=== PATIENT | male | born 1945 | race Caucasian/White ===

== ENCOUNTER 2024-06-29 09:48 | Outpatient (CLI) | payer MEDICARE, SELFPAY ==
--- NOTE | ~2024-06-29 | XR_ITS ---
Clinical Indication: Cough PA and lateral views of the chest: Comparison: None Findings: The lungs are clear, without evidence of focal consolidation or pleural effusion. Cardiome diastinal silhouette is within normal limits. Bones and soft tissues are unremarkable. Impression: Normal chest. Reviewed, dictated and finalized at location . Impression: Normal chest.
== END 2024-06-29 09:49 | disposition home or self-care (01) ==
PROVIDERS: PCP Nurse Practitioner Family; Visit Provider Nurse Practitioner Family
DX: R05.9 Cough, unspecified (principal)
CPT/HCPCS: 71046

== ENCOUNTER 2024-08-02 08:16 | Outpatient (CLI) | payer MEDICARE, SELFPAY ==
[2024-08-02 18:52] LABS: Hematocrit 46.1 % (42.0-52.0); Hemoglobin 14.4 g/dL (14.0-18.0); Mean Corpuscular HGB Conc 31.2 g/dl (32-36); Mean Corpuscular Hemoglobin 30.6 pg (26-34); Mean Corpuscular Volume 97.9 fl (80-100); Mean Platelet Volume 9.9 fl (7.4-10.4); Platelet Count Result 350 k/mm3 (150-375); Red Blood Count 4.71 M/mm3 (4.6-6.20); Red Cell Distribution Width 13.8 % (11.5-14.5); White Blood Count 8.4 K/mm3 (4.5-10.0)
[2024-08-02 19:47] LABS: Hepatitis B Surface Antigen Negative (Negative)
[2024-08-02 19:53] LABS: HAV RESULT Negative (Negative); Hepatitis B Core IgM Result Negative (Negative)
[2024-08-02 19:59] LABS: Alanine Aminotransferase 24 U/L (6-50); Albumin Level 4.2 g/dL (3.5-5.1); Alkaline Phosphatase 95 U/L (38-126); Anion Gap 5 mmol/L (4-12); Aspartate Amino Transferase 58 U/L (17-59); Bilirubin,Total 0.4 mg/dL (0.2-1.3); Blood Urea Nitrogen 22 mg/dL (9-20); Calcium 9.1 mg/dL (8.4-10.2); Carbon Dioxide 31 mmol/L (22-30); Chloride 101 mmol/L (98-107); Cholesterol 170 mg/dL (0-200); Estimated Glomerular Filt Rate 59; Glucose 90 mg/dL (65-110); HDL Direct 55 mg/dL; Potassium 4.6 mmol/L (3.4-5.0); Sodium 137 mmol/L (137-145); Triglycerides 68 mg/dL (<150)
[2024-08-02 20:05] LABS: Hepatitis C Virus Antibody Negative (Negative)
[2024-08-02 20:11] LABS: LDL Cholesterol Direct 80 mg/dL
== END 2024-08-02 08:17 | disposition home or self-care (01) ==
PROVIDERS: PCP Nurse Practitioner Family; Visit Provider Family Medicine
DX: D64.9 Anemia, unspecified (principal); K21.9 Gastro-esophageal reflux disease without esophagitis; R13.10 Dysphagia, unspecified; R74.8 Abnormal levels of other serum enzymes; Z00.00 Encounter for general adult medical examination without abnormal findings; R11.0 Nausea; Z12.5 Encounter for screening for malignant neoplasm of prostate; E66.9 Obesity, unspecified; E78.5 Hyperlipidemia, unspecified
CPT/HCPCS: 36415; 80053; 80061; 80074; 84153; 84443; 85027; G0103

== ENCOUNTER 2024-11-20 11:14 | Outpatient (CLI) | payer MEDICARE, SELFPAY ==
[2024-11-20 12:34] LABS: Hematocrit 44.6 % (42.0-52.0); Hemoglobin 14.3 g/dL (14.0-18.0); Mean Corpuscular HGB Conc 32.1 g/dl (32-36); Mean Corpuscular Hemoglobin 30.9 pg (26-34); Mean Corpuscular Volume 96.3 fl (80-100); Mean Platelet Volume 9.7 fl (7.4-10.4); Platelet Count Result 258 k/mm3 (150-375); Red Blood Count 4.63 M/mm3 (4.6-6.20); Red Cell Distribution Width 13.4 % (11.5-14.5); White Blood Count 10.2 K/mm3 (4.5-10.0)
--- OUTSIDE RECORDS SUMMARY | 2024-11-20 12:39 | XMS_ITS | Continuity of Care Document ---
Author Organization [facility] Address [address] [place] [address] Phone Care Team Providers Care Delinquent Tax Collector Name Role Phone Aris Nobles MD Unavailable Unavailable Procedures Procedure Date Eye Exam & Treatment Office/outpatient Visit, Est Office/outpatient Visit, Est Advance Directives Directive Yes / No Effective Date File Name No Information Encounters Encounter Description Practice Location Reason(s) For Visit Diagnoses Date Provider Providers Copied on Encounter [facility], [address] [place] [address] [address], [place], [place], [id number], [place] tel:[phone] SEC Zack RODRIGES Professional No Information [address] [facility] [place], [address], [place]. tel:[phone] [place]pat [place] [facility] [address] [place] [address] [address], [place], [place], [id number], [place] tel:[phone] SEC Zack RODRIGES Professional No Information [address] [facility], [place], [place], [address], [place]. tel:[phone] Office/[place]pat [place] [facility] [place] [address] [place] [address] [address], [place], [place], [id number], [place] tel:[phone] SEC Zack ANTELMO Professional No Information 0-[address], [place], [place], [address], [place]. tel:[phone] Family History Family Member Type Diagnosis Age At Onset No Information Payers Payer name Insurance type Covered republican ID Authoriza tion(s) No Information Social History Type Description Quantity Date Captured Comments Sex Male Smoking Status No Information Chief Complaint And Reason For Visit No Information Reason For Referral Reason For Referral No Information History Of Present Illness Encounter Date Complaint History Of Prese nt Illness No Information Functional Status Date Functional Assessmen t No Information Instructions Date Instruction Additional Infor mation No Information Assessments Type Assessment Date No Information Patient Care Teams Name Effective Dates (start - stop) Status Members No Information
--- OUTSIDE RECORDS SUMMARY | 2024-11-20 12:39 | XMS_ITS | Encounter Summary ---
Author Organization [facility] Address [address] [facility] [place] [address] Care Team Providers Care Subgrade Tester Name Role Phone Camacho Jacobsen MD Primary Care Provider [phone] Encounter Details Date Type Department Care Team (Late st Contact Info) Description 02/21/2019 Lab Requisition [facility] Care D[facility] Lab [address] [facility] [place] [id number] [place] [address] Social History Tobacco Use Types Packs/Day Years Used Date Smoking Tobacco: Never Smokeless Tobacco: Never Alcohol Use Standard Drinks/Week Comments Yes 0 (1 standard drink = 0.6 oz pur e alcohol) Sex and Gender Information Value Date Recorded Sex Assigned at Not on file Gender Identity Not on file Sexual Orientation Not on file documented as of this encounter Plan of Treatment Not on file documented as of this encounter Procedures Procedure Name Priority Date/Time Associated Diagnosis Comments DERMATOPATHOLOGY Routine 02/20/2019 12:0 0 AM CDT documented in this encounter Results * DERMATOPATHOLOGY (02/20/2019 12:00 AM CDT) Case Report Dermatopathology Report Case: [id number] Authorizing Provider: Isaac Sims MD Collected: 02/20/2019 12:00 AM Pathologist: Estrada Vaca MD Received: 02/21/2019 12:25 PM Specimen: Skin, base of left neck 4:20 PM CDT DERMATOPATHOLOGY LABORATORY Final Diagnosis Specimen A. 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 4:20 PM CDT DERMATOPATHOLOGY LABORATORY Gross Description Specimen A: Received is one formalin filled container labeled with the patient's name and designated base of left neck. The specimen consists of a shave biopsy measuring [id number]. Jar 0. 4:20 PM CDT DERMATOPATHOLOGY LABORATORY Microscopic Description Specimen A. SKIN, base of left neck: The epidermis shows parakeratosis, full thickness disorderly maturation of keratinocytes, mitoses at different levels, and dyskeratotic cells. 4:20 PM CDT DERMATOPATHOLOGY LABORATORY Disclaimer An external and internal positive and negative controls are appropriate for the histochemical, immunohistochemical and immunofluorescence stain(s) in this case (if any), except where stated explicitly. The performance characteristics of the stain(s) cited in this report were developed and its performance characteristic determined by the Dermatopathology Laboratory at [facility], directed by Dr. Carol Vaca. These tests need not be, and therefore are not, approved by the [place] Food and Drug Administration. The tests are used for clinical purposes. Billing Codes Specimen Charges Stain Charges 04685 1 4:20 PM CDT DERMATOPATHOLOGY LABORATORY Embedded Images 4:20 PM CDT DERMATOPATHOLOGY LABORATORY Pathology/Cytolog y TISSUE SPECIMEN FROM SKIN / Unknown 02/20/2019 02/21/2019 12:25 PM CDT Isaac Sims MD LAB - PATHOLOGY/CYTO LOGY ORDERABLES DERMATOPATHOLOGY LABORATORY [facility] - Department of Dermatology [address] [place] [address], 5th Floor Lab [address] [phone] documented in this encounter Visit Diagnoses Not on filedocumented in this encounter Care Teams Subgrade Tester Relationship Specialty Start Date End Date Camacho Jacobsen MD PCP - General 10/12/13 documented as of this encounter
--- OUTSIDE RECORDS SUMMARY | 2024-11-20 12:39 | XMS_ITS | Encounter Summary ---
Author Organization [facility] Address [address] [place] [address] Care Team Providers Care Supervisor Finishing Room Name Role Phone Camacho Jacobsen MD Primary Care Provider + Trell Rojas MD Primary Care Provider [phone] Reason for Visit * Auth/Cert (Routine) Specialty Diagnoses / Procedures Referred By Contcarmela t Referred To Contact Diagnoses Anemia, unspecified type Encounter for screening colonoscopy Anemia, unspecified type [D64.9] Encounter for screening colonoscopy [Z12.11] Procedures CT COLONOSCOPY FLX DX W/COLLJ SPEC WHEN PFRMD COLONOSCOPY Referral ID Status Reason Start Date Expiration Date Visits Re quested Visits Authorized [id number] 1 1 Encounter Details Date Type Department Care Team (Late st Contact Info) Description 01/23/2024 Hospital Encounter [facility] [address] [place] [address] Mickey Hutchison MD [address] [place] [address] Social History Tobacco Use Types Packs/Day Years Used Date Smoking Tobacco: Never Smokeless Tobacco: Never Alcohol Use Standard Drinks/Week Comments No 0 (1 standard drink = 0.6 oz pur e alcohol) Sex and Gender Information Value Date Recorded Sex Assigned at Not on file 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 Gender Identity Not on file Sexual Orientation Not on file documented as of this encounter Plan of Treatment Not on file documented as of this encounter Visit Diagnoses Diagnosis Anemia Unspecified anemia Encounter for screening colonoscopy documented in this encounter Admitting Diagnoses Diagnosis Anemia Unspecified anemia Encounter for screening colonoscopy documented in this encounter Care Teams Supervisor Finishing Room Relationship Specialty Start Date End Date Camacho Jacobsen MD [address] [place] [address] PCP - General 01/11/17 11/16/24 Trell Roajs MD [address] [place] [address] PCP - General Family Practice 11/17/24 documented as of this encounter
--- OUTSIDE RECORDS SUMMARY | 2024-11-20 12:39 | XMS_ITS | Continuity of Care Document ---
Author Organization [facility] Address [address] [place] [address] Phone Care Team Providers Care It Field Technician Name Role Phone Justo Gatica MD Unavailable Unavailable Allergies, Adverse Reactions, Alerts Substance Reaction Status Criticality No Known Allergies Active No Inform ation Medications Medication Instructions Dosage Effective Dates (start - stop) Status Comments meloxicam 15 mg tablet take 1 tablet by oral route every day as needed 15 MG - Active Vitamin D3 50 mcg (2,000 unit) tablet - Active biotin 5,000 mcg disintegrating tablet - Active rosuvastatin 10 mg tablet take 1 tablet by oral route every day 10 MG - Active diltiazem ER (XR/XT) 240 mg capsule,extended release 24 hr, controlled take 1 capsule by oral route every day 240 MG - Active Restasis 0.05 % eye drops in a dropperette instill 1 drop by ophthalmic route every 12 hours into affected eye(s) 1.00 drop - Active Procedures Procedure Date Intravitreal Inj-agent (sep Pr Bevcizumab Avastin Optos Fundus Photography No Charge Retinal OCT Est Patient E/M Low MDM Bevcizumab Avastin No Charge Retinal OCT Intravitreal Inj-agent (sep Pr Optos Fundus Photography Pachymetry Gonioscopy (separt Proc) Scan Computerized; Optic Nerve Est Patient E/M Moderate MDM Intravitreal Inj-agent (sep Pr Bevcizumab Avastin Scan Computerized; Retina Est Patient E/M Low MDM Scan Computerized; Retina New Patient E/M Moderate MDM Advance Directives Directive Yes / No Effective Date File Name No Information Encounters Encounter Description Practice Location Reason(s) For Visit Diagnoses Date Provider Providers Copied on Encounter [facility], [address] [place], [place], [id number], [place] tel:[phone] Vladimir Exudative age-related macular degeneration, bilateral, with active choroidal neovascularizat ion Dec-1 0- 3 Gavi Kemp. [address] [place], [address] , [place]. tel:[phone] Referring Provider: Justo Gatica, [address] [place], [address] . tel:[phone] Est Patient E/M Low [facility], [address] [place], [place], [id number], [place] tel:[phone] Vladimir Vision loss in the left eye (chief complaint) Exudative age-related macular degeneration, bilateral, with active choroidal neovascularizat ion Mar-0 - 3 Gavi Kemp. [address] [place], [address] , [place]. tel:[phone] Referring Provider: Justo Gatica, [address] [place], [address] . tel:[phone] [facility], [facility] [place], [place], [address], tel:[phone] [facility] Follow Up of AMD (chief complaint) Exudative age-rel mclr degn, bi, with actv chrdl neovas 3 Gavi Kemp. [address] [place], [place], [address] , . tel:[phone] Referring Provider: Justo Gatica, [address] [place], [address] . tel:[phone] Est Patient E/M [facility] [place], [facility] , [place], [place], [id number], [place] tel:[phone] [facility] Glaucoma Consult (chief complaint) Primary open-angle glaucoma, right eye, mild stageOcular hypertension of left eye 2 Bobby Murdock. [address], [place], [place], [address] , [place]. tel:[phone] Referring Provider: Mathieu Dorado, [address], [place], [address] . tel:[phone] [facility], [facility] [address] , [place], [place], [address], [place] tel:[phone] [facility] Exudative age-related macular degeneration, bilateral, with active choroidal neovascularizat ion 2 Gavi [address]. [address] [place], [address] , [place]. tel:[phone] Referring Provider: Justo Gatica, [facility], [place], [address] . tel:[phone] Est Patient E/M Low [facility], [facility] , [place], [place], [address], [place] tel:[phone] [place] Exudative age-rel mclr degn, bi, with actv chrdl neovas (chief complaint) Exudative age-rel mclr degn, bi, with actv chrdl neovas 2 Gavi Kemp. [address] [place], [address] , [place]. tel:[phone] Referring Provider: Justo Gatica, [address] [place], [address] . tel:[phone] New Patient E/M [facility] [place], [facility] [facility] [address], [place], [place], [address], [place] tel:[phone] [place] Retinal Consult (chief complaint) Exudative age-rel mclr toribio, bi, with actv chrdl neovas 2 Gavi [address]. [address] [place], [address] , [place]. tel:[phone] Referring Provider: Justo Gatica, [address] [place], [address] . tel:[phone] Family History Family Member Type Diagnosis Age At Onset Mother Problem Hypertension Sister Problem Macular degeneration Father Problem Hypertension Brother Problem Macular degeneration Payers Payer name Insurance type Covered democrat ID Marcellus villeda(s) [employer] Medicare CI [id number] Social History Type Description Quantity Date Captured Comments Alcohol Use Details Unknown Caffeine Use Details Unknown Tobacco Use Status No Information Smoking Status No Information Sex Male Chief Complaint And Reason For Visit No Information Reason For Referral Reason For Referral No Information History Of Present Illness Encounter Date Complaint History Of Prese nt Illness Vision loss in the left eye Ilda ent is presented for an evaluation of vision loss in the left eye. Pt was last seen 11/05/22. Pt last injection AV OU 11/05/22. Pt reports after injections vision had improved. Pt reports distorted vision and blurry spots OS. PT reports symptoms started last week. Pt reports really noticing symptoms 4 days ago. Pt is unsure if symptoms have worsened or not in the last 4 days. Pt reports symptoms are constant. Follow Up of AMD Patient is pres ented for a follow up of AMD. PT was last seen 10/06/22. Pt reports no change in vision since last appt. Pt reports blurry vision OD. PT reports symptoms are not improving/worsening. Pt last injection 09/24/22 AV OU. Glaucoma Consult The 76 year old male presents for evaluation of Glaucoma Consult in the right eye and left eye. The symptom is constant. Pt states when he saw Dr Gatica on 09/24, he was told to come see Dr Rosales because of his high pressures. Pt states he has had high pressures for the last 40 years. Pt denies any pressure pain. Pt is taking Restasis QAM OU for dry eye and AT's PRN. Exudative age-rel mc lr degn, bi, with actv chrdl neovas The 76 year old male presents for evaluation of Exudative age-rel mclr degn, bi, with actv chrdl neovas in the right eye and left eye. Pt was last seen back August. The symptom is constant. Pt states vision changes OU, onset about 1 week ago. Pt reports they need more light to see, primarily when reading. Pt states wavy vision OD started about 3 days ago. Pt reports dark spots on OU. Pt denies any pain or flashes. Occasional floater OS. Retinal Consult The 76 year old male presents for evaluation of Retinal Consult in the right eye and left eye. The symptom is constant. Pt states seeing Dr. Hollis at [facility]. DX DX Neovascular AMD w/Active CNV OU. See Outside Consult notes.Pt reports last seeing Dr. Hollis on 08.03.22. Had AV Injection 07/27/22 OD and 08/03/22. Pt reports after last vision did notice a slight improvement in vision. Pt has occasional floaters both eyes. No flashes.Pt notes when looking at door frame notices a left hand curve right eye. Does not notice with both eyes open.Hx of Retinal Tears OU, ERM OU, Phaco w/IOL OU, Ocular Hypertension OU Functional Status Date Functional Assessmen t No Information Instructions Date Instruction Additional Infor christopher schedule AV OU 12/17 then f/u 4 - 6 wks later w/Dr Gatica for de/oct/optos Related to Exudative age-related macular degeneration, bilateral, with active choroidal neovascularization Impression/Plan - Di scussed diagnosis in detail with patient. Pt concerned that vision was changing, so he came in sooner. Advised patient that he does still have minimal leakage in bth eyes, and we should keep on coarse with the injections. Discussed risks of progression with present condition. Based on findings recommend to continue with Intravitreal Injection Treatment in BOTH EYES with AVASTIN to help reduce the fluid and prevent a further reduction in vision. Discussed the risks and benefits of tx. All questions answered. Patient elects to proceed with recommendation. OCT and Optos show minimal leakage OU. Related to Exudative age-rel mclr degn, bi, with actv chrdl neovas Follow up - schedule AV OU 12/17/22 then f/u 4 - 6 wks later w/Dr Gatica for de/oct/optos Related to Exudative age-rel mclr degn, bi, with actv chrdl neovas AV OU today then f/u in 4 - 6 wks for de/oct/optos w/Dr Gatica Related to Exudative age-rel mclr degn, bi, with actv chrdl neovas Impression/Plan - Di scussed diagnosis in detail with patient. Discussed risks of progression with present condition. Based on findings recommend to continue with Intravitreal Injection Treatment in BOTH EYES with AVASTIN to help reduce the fluid and prevent a further reduction in vision. Discussed the risks and benefits of tx. All questions answered. Patient elects to proceed with recommendation. OCT and Optos show minimal leakage OU. Related to Exudative age-rel mclr degn, bi, with actv chrdl neovas Follow up - AV OU to day then f/u in 4 - 6 wks for de/oct/optos w/Dr Gatica Related to Exudative age-rel mclr degn, bi, with actv chrdl neovas Schedule SLT OS with Mathieu Rosales MD Related to Ocular hypertension of left eye Schedule SLT OD with Mathieu Rosales MD Related to Primary open-angle glaucoma, right eye, mild stage Impression/Plan - Di scussed diagnosis, explained and understood by patient. Discussed IOP/ONH/Glaucoma management and risks. OCT ordered, performed and reviewed. Discussed adding drops vs laser. Patient elects SLT. Recommend Trabeculoplasty (SLT) OD 1st to possibly lower IOP. Discussed RBA's of laser trabeculoplasty . RL=2 Related to Primary open-angle glaucoma, right eye, mild stage Impression/Plan - Di scussed adding drops vs laser. Patient elects SLT. Recommend Trabeculoplasty (SLT) OS to possibly lower IOP. Discussed RBA's of laser trabeculoplasty . RL=2 Related to Ocular hypertension of left eye Follow up - Schedule SLT OD with Mathieu Rosales MD Related to Primary open-angle glaucoma, right eye, mild stage Follow up - Schedule SLT OS with Mathieu Rosales MD Related to Ocular hypertension of left eye AV OU (first w/ swec ) today then f/u in 4 - 6 wks for de/oct/optos w/Dr Gatica Related to Exudative age-rel mclr degn, bi, with actv chrdl neovas Impression/Plan - Di scussed diagnosis in detail with patient. Discussed risks of progression with present condition. Based on findings recommend Intravitreal Injection Treatment in BOTH EYES with AVASTIN to help reduce the fluid and prevent a further reduction in vision. Discussed the risks and benefits of tx. All questions answered. Patient elects to proceed with recommendation. OCT OU shows slight increase in edema. Related to Exudative age-rel mclr degn, bi, with actv chrdl neovas Follow up - AV OU (first w/ swec) then f/u in 4 - 6 wks for de/oct/optos w/Dr Gatica Related to Exudative age-rel mclr degn, bi, with actv chrdl neovas f/u in 3 - 4 wks for de/oct/optos w/Dr. Gatica, schedule a Glaucoma consult Related to Exudative age-rel mclr degn, bi, with actv chrdl neovas Impression/Plan - Di scussed diagnosis in detail with patient. Exam OD shows RPE mottling w/ shallow PED, no active hemorrhage/exudates, Exam OS shows extensive drusen, no active hemorrhage/fluid, shallow PED. No treatment is required at this time based on exam and diagnostic tests. Recommend observation for now. Will reassess condition in 3 - 4 wks, consider TIFFANIE treatment. OCT OU shows minimal activity, ? active.Recommend a glaucoma consult due to elevated IOP OU. Related to Exudative age-rel mclr degn, bi, with actv chrdl neovas Follow up - f/u in 3 - 4 wks for de/oct/optos w/Dr. Gatica, schedule a Glaucoma consult Related to Exudative age-rel eliud morel, with actv kel neovas Assessments Type Assessment Date No Information Patient Care Teams Name Effective Dates (start - stop) Status Members No Information
--- OUTSIDE RECORDS SUMMARY | 2024-11-20 12:39 | XMS_ITS | Patient Health Summary ---
Author Organization [facility] Address [address] [facility] [place] [address] Care Team Providers Care Director Sales And Marketing Name Role Phone Camacho Jacobsen MD Primary Care Provider [phone] Note from [facility],non-owned Affiliates and Associated Physician Practices is amultiple site organization consisting of ambulatory clinics and hospital sitesin [place], [place], [place] and [place]. This disclosure is being madepursuant to the Care Everywhere program and may not contain all information available regarding this patient. Last updated 18.[facility] [employer] Allergies No known active allergies Medications * Be aware that medications may not be up to date on this document. Alwaysverify current medications with the patient. * Cholecalciferol (VITAMIN D) 2000 units capsule Take 2,000 Units by mouth once daily * Meloxicam 5 MG CAPS Take by mouth once daily * ferrous sulfate 325 (65 FE) MG tablet Take 1 (one) tablet by mouth once daily * dilTIAZem HCl Coated Beads (DILTIAZEM CD PO) Take 240 mg by mouth once daily * rosuvastatin (Crestor) 10 MG tablet Take 1 (one) Half Tablet by mouth once daily Active Problems Problem Noted Date Diagnosed Date Cardiomyopathy, dilated 01/19/2023 04/05/20 23 Hyperlipidemia 02/24/2022 04/05/2023 Hypertension 02/24/2022 04/05/2023 Left bundle branch block 02/24/2022 023 Encounter for health-related screening 04/05/2023 Dysphagia 02/19/2020 04/05/2023 Medication management 06/06/2017 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 Vitamin D deficiency 02/23/2014 Social History Tobacco Use Types Packs/Day Years Used Date Smoking Tobacco: Never Smokeless Tobacco: Never Alcohol Use Standard Drinks/Week Comments Yes 0 (1 standard drink = 0.6 oz pur e alcohol) Sex and Gender Information Value Date Recorded Sex Assigned at Not on file Gender Identity Not on file Sexual Orientation Not on file Last Filed Vital Signs Vital Sign Reading Time Taken Comments Blood Pressure 151/77 03/21/2023 7:30 AM CDT Pulse 65 03/21/2023 7:30 AM CDT Temperature - - Respiratory Rate - - Oxygen Saturation 98% 05/22/2019 11:59 AM CDT Inhaled Oxygen Concentration - - Weight 77.1 kg (170 lb) 01/25/2022 8:28 AM CDT Height 167.6 cm (5' 6 ) 01/25/2022 8:28 AM CDT Body Mass Index 27.44 01/25/2022 8:28 AM CDT Procedures * MS CHMSRG MOHS MG TQ H/N/H/F/G 1ST STAG 5 BLOC(Performed 03/21/2023) 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 * PROC MOHS SURG HEAD/NECK/HAND/FEET/CONSUELO(Performed 03/21/2023) 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 * MS CHMSRG MOHS MG TQ H/N/H/F/G EA ADDL STAG(Performed 03/21/2023) 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 * MS CHMSRG MOHS MG TQ H/N/H/F/G 1ST STAG 5 BLOC(Performed 03/21/2023) 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 * MS CHMSRG MOHS MG TQ H/N/H/F/G EA ADDL STAG(Performed 03/21/2023) 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 * DERMATOPATHOLOGY(Performed 01/20/2023) * MS CHMSRG MOHS MG TQ H/N/H/F/G EA ADDL STAG(Performed 01/25/2022) 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 * MS CHMSRG MOHS MG TQ H/N/H/F/G 1ST STAG 5 BLOC(Performed 01/25/2022) 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 * DERMATOPATHOLOGY(Performed 07/28/2020) * MS CHMSRG MOHS MG TQ H/N/H/F/G 1ST STAG 5 BLOC(Performed 05/22/2019) 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 * MS REPR CMPL WND HEAD,FAC,HAND 2.6-7.5(Performed 05/22/2019) 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 * DERMATOPATHOLOGY(Performed 02/20/2019) * DERMATOPATHOLOGY(Performed 10/23/2013) Results * MS CHMSRG MOHS MG TQ H/N/H/F/G EA ADDL STAG, MS CHMSRG MOHS MG TQ H/N/H/F/G 1ST STAG 5 BLOC (03/21/2023 12:13 PM CDT) Narrative Jennifer Novoa MD - 03/21/2023 12:13 PM CDT Jennifer Novoa MD 03/21/2023 2:02 PM Mohs Micrographic Surgery Operative Note Procedure: Mohs micrographic surgery Date of service: 03/21/2023 Location: left crown 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 No other physician was involved in the cancer removal or pathology interpretation. Assistants: N/A Indications for Mohs Surgery Removal of the patient's tumor is complicated by the following clinical features: Clinical area critical for tissue conservation (Area M: cheeks, forehead, scalp, neck, jawline, pretibial surface). Based on my medical judgement, Mohs surgery is the most appropriate treatment for this cancer compared to other treatments. I discussed alternative treatments to Mohs surgery and specifically discussed the risks and benefits of curettage, excision with permanent sections, and foregoing treatment. The rationale for Mohs was explained to the patient and consent was obtained. The risks, benefits and alternatives to therapy were discussed in detail. Specifically, the risks of infection, scarring, bleeding, prolonged wound healing, incomplete removal, allergy to anesthesia, nerve injury and recurrence were addressed. Prior to the procedure, the treatment site was clearly identified and confirmed by the patient. All components of Heaters Protocol/PAUSE Rule completed. STAGE I: The patient was placed on the operating table. The cancer was identified and outlined. The entire surgical field was prepped with hibiclens. The surgical site was anesthetized using Lidocaine 1% with epinephrine 1:100,000 buffered with sodium bicarbonate 8.4% in a 1:10 ratio.The area of clinically apparent tumor was debulked with a 2 mm curette. The layer of tissue was then surgically excised using a #15 blade and was then transferred onto a specimen sheet maintaining the orientation of the specimen. Hemostasis was obtained using monopolar electrodesiccation. The wound site was then covered with a dressing while the tissue samples were processed for examination. The specimen was oriented, mapped and divided. Each section was then inked and processed in the Mohs lab using the Mohs protocol and submitted for frozen section. The histopathologic sections were reviewed by the surgeon in conjunction with the reference map. Total blocks: 1 Total slides: 3 Frozen sections were examined by the surgeon and revealed residual tumor. Tumor was indicated in red on the reference map. Cell morphology: full thickness epidermal squamous cell atypia with cellular pleomorphism (SCCis) Pathological pattern: Squamous cell carcinoma in situ Depth of invasion: Epidermis Scar tissue: Not Present Perineural invasion: Not Present Inflammation obscuring possible tumor presence: Not Present STAGE II: The patient was prepped in the same fashion as the first stage. Using a similar technique to that described above, a thin layer of tissue was removed from all areas where tumor was visible on the previous stage. The tissue was again oriented, mapped, dyed, and processed as above. Histopathologic sections were reviewed in conjunction with the reference map. Total blocks: 1 Total slides: 2 Frozen sections were examined by the surgeon and revealed residual tumor. Tumor was indicated in red on the reference map. No additional histologic findings appreciated. STAGE III: The patient was prepped in the same fashion as the first stage. Using a similar technique to that described above, a thin layer of tissue was removed from all areas where tumor was visible on the previous stage. The tissue was again oriented, mapped, dyed, and processed as above. Histopathologic sections were reviewed in conjunction with the reference map. 1 Total blocks: 1 Total slides: 2 Frozen sections were examined by the surgeon and revealed residual tumor. Tumor was indicated in red on the reference map. No additional histologic findings appreciated. STAGE IV: The patient was prepped in the same fashion as the first stage. Using a similar technique to that described above, a thin layer of tissue was removed from all areas where tumor was visible on the previous stage. The tissue was again oriented, mapped, dyed, and processed as above. Histopathologic sections were reviewed in conjunction with the reference map. Total blocks: 1 Total slides: 2 Frozen sections were examined by the surgeon and revealed: No additional tumor. Histology: No malignant cells seen in the sections examined. Actinic keratosis was noted on the final margin and treated with curettage prior to completion of the procedure. [facility] # [id number] Mohs Director: Jennifer Novoa MD REPAIR: Secondary Intention The patient is status-post Mohs micrographic surgery. The surgical site was examined with attention to normal anatomic and functional relationships. After consideration and discussion of multiple options with the patient, it was determined that healing by secondary intention would offer the best chance for preservation/worship of all normal anatomic and functional relationships. The patient verbalized understanding and agreed with this plan. It is also understood that should second intention healing be sub-optimal, additional procedures such as scar revision, steroid injection or dermabrasion may be recommended. The open wound was cleaned and a thick layer of vaseline was applied. A pressure dressing consisting of non-adherent gauze, gauze, and hypafix was applied. Wound care was discussed with the patient both orally and in writing. The patient stated understanding and agreement with the course of care. Dr. Novoa performed the entire surgery, and documentation used to initiate this operative report. I entered the information in our [employer] DocFlowsheet with the information provided by Dr. Novoa on her handwritten, paper format, surgical worksheet, which was then used to initiate the create of this note. Dr. Novoa then reviewed and edited the note as needed to complete the note. Lucero Donnelly LPN I have reviewed the note, edited it as necessary and performed the entire procedure. 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 No other physician was involved in the cancer removal or pathology interpretation. Assistants: N/A Indications for Mohs Surgery Removal of the patient's tumor is complicated by the following clinical features: Clinical area critical for tissue conservation (Area M: cheeks, forehead, scalp, neck, jawline, pretibial surface). Based on my medical judgement, Mohs surgery is the most appropriate treatment for this cancer compared to other treatments. I discussed alternative treatments to Mohs surgery and specifically discussed the risks and benefits of curettage, excision with permanent sections, and foregoing treatment. The rationale for Mohs was explained to the patient and consent was obtained. The risks, benefits and alternatives to therapy were discussed in detail. Specifically, the risks of infection, scarring, bleeding, prolonged wound healing, incomplete removal, allergy to anesthesia, nerve injury and recurrence were addressed. Prior to the procedure, the treatment site was clearly identified and confirmed by the patient. All components of Heaters Protocol/PAUSE Rule completed. STAGE I: The patient was placed on the operating table. The cancer was identified and outlined. The entire surgical field was prepped with hibiclens. The surgical site was anesthetized using Lidocaine 1% with epinephrine 1:100,000 buffered with sodium bicarbonate 8.4% in a 1:10 ratio.The area of clinically apparent tumor was debulked with a 2 mm curette. The layer of tissue was then surgically excised using a #15 blade and was then transferred onto a specimen sheet maintaining the orientation of the specimen. Hemostasis was obtained using monopolar electrodesiccation. The wound site was then covered with a dressing while the tissue samples were processed for examination. The specimen was oriented, mapped and divided. Each section was then inked and processed in the Mohs lab using the Mohs protocol and submitted for frozen section. The histopathologic sections were reviewed by the surgeon in conjunction with the reference map. Total blocks: 1 Total slides: 3 Frozen sections were examined by the surgeon and revealed residual tumor. Tumor was indicated in red on the reference map. Cell morphology: full thickness epidermal squamous cell atypia with cellular pleomorphism (SCCis) Pathological pattern: Squamous cell carcinoma in situ Depth of invasion: Epidermis Scar tissue: Not Present Perineural invasion: Not Present Inflammation obscuring possible tumor presence: Not Present STAGE II: The patient was prepped in the same fashion as the first stage. Using a similar technique to that described above, a thin layer of tissue was removed from all areas where tumor was visible on the previous stage. The tissue was again oriented, mapped, dyed, and processed as above. Histopathologic sections were reviewed in conjunction with the reference map. Total blocks: 1 Total slides: 2 Frozen sections were examined by the surgeon and revealed residual tumor. Tumor was indicated in red on the reference map. No additional histologic findings appreciated. STAGE III: The patient was prepped in the same fashion as the first stage. Using a similar technique to that described above, a thin layer of tissue was removed from all areas where tumor was visible on the previous stage. The tissue was again oriented, mapped, dyed, and processed as above. Histopathologic sections were reviewed in conjunction with the reference map. Total blocks: 1 Total slides: 2 Frozen sections were examined by the surgeon and revealed: No additional tumor. Histology: No malignant cells seen in the sections examined. No additional histologic findings appreciated. [facility] CLIA # [id number] [facility] Director: Jennifer Behshad, MD REPAIR: Secondary Intention The patient is status-post Mohs micrographic surgery. The surgical site was examined with attention to normal anatomic and functional relationships. After consideration and discussion of multiple options with the patient, it was determined that healing by secondary intention would offer the best chance for preservation/worship of all normal anatomic and functional relationships. The patient verbalized understanding and agreed with this plan. It is also understood that should second intention healing be sub-optimal, additional procedures such as scar revision, steroid injection or dermabrasion may be recommended. The open wound was cleaned and a thick layer of vaseline was applied. A pressure dressing consisting of non-adherent gauze, gauze, and hypafix was applied. Wound care was discussed with the patient both orally and in writing. The patient stated understanding and agreement with the course of care. Dr. Novoa performed the entire surgery, and documentation used to initiate this operative report. I entered the information in our [employer] DocFlowsheet with the information provided by Dr. Novoa on her handwritten, paper format, surgical worksheet, which was then used to initiate the create of this note. Dr. Novoa then reviewed and edited the note as needed to complete the note. Lucero Donnelly LPN I have reviewed the note, edited it as necessary and performed the entire procedure. Jennifer Novoa MD [employer] 03/21/2023 Jennifer Novoa MD PROCEDURE/MINOR SURG ICAL ORDERABLES * DERMATOPATHOLOGY (01/20/2023 12:00 AM CDT) Only the most recent of4 resultswithin the time period is included. Case Report Dermatopathology Report Case: [id number] Authorizing Provider: Ksenia Will MD Collected: 01/20/2023 12:00 AM Ordering Location: [facility] DermPath Lab Received: 01/20/2023 12:14 PM Pathologist: Cristiana Goodwin MD Specimens: A) - Skin, crown B) - Skin, left crown 12:10 PM CDT DERMATOPATHOLOGY LABORATORY Final Diagnosis Specimen A. 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 SKIN, left crown: SQUAMOUS CELL CARCINOMA IN SITU, PRESENT AT THE BASE OF THE SPECIMEN (D04.4) (see microscopic description and comment) 12:10 PM T DERMATOPATHOLOGY LABORATORY Clinical History A-B: R/O SCC 12:10 PM T DERMATOPATHOLOGY LABORATORY Gross Description Specimen A: Received is one formalin filled container labeled with the patient's name and designated crown. The specimen consists of a shave biopsy measuring 6x5x1 mm. Jar 0. Specimen B: Received is one formalin filled container labeled with the patient's name and designated left crown. The specimen consists of a shave biopsy measuring 6x5x1 mm. Jar 0. 12:10 PM [facility] DERMATOPATHOLOGY LABORATORY Microscopic Description Specimen A. SKIN, crown: The epidermis shows parakeratosis, full thickness disorderly maturation of keratinocytes, mitoses at different levels, and dyskeratotic cells. Specimen B. SKIN, left crown: The epidermis shows parakeratosis, full thickness disorderly maturation of keratinocytes, mitoses at different levels, and dyskeratotic cells. The lesion extends to the base of the biopsy. COMMENT: An invasive squamous cell carcinoma cannot be ruled out. 12:10 PM T DERMATOPATHOLOGY LABORATORY Disclaimer An external and internal positive and negative controls are appropriate for the histochemical, immunohistochemical and immunofluorescence stain(s) in this case (if any), except where stated explicitly. The performance characteristics of the stain(s) cited in this report were developed and its performance characteristic determined by the Dermatopathology Laboratory at [facility], directed by Dr. Carol Vaca. These tests need not be, and therefore are not, approved by the [place] Food and Drug Administration. The tests are used for clinical purposes. Billing Codes Specimen Charges Stain Charges 04467 [id number] 1 1 12:10 PM CDT DERMATOPATHOLOGY LABORATORY Embedded Images 12:10 PM T DERMATOPATHOLOGY LABORATORY Pathology/Cytology TISSUE SPECIMEN FROM SKIN / Unknown 01/20/2023 01/20/2023 12:14 PM CDT Miscellaneous samples (specimen) TISSUE SPECIMEN FROM SKIN / Unknown 01/20/2023 01/20/2023 12:14 PM CDT Ksenia Will MD LAB - PATHOLOGY/CYTO LOGY ORDERABLES DERMATOPATHOLOGY LABORATORY [facility] - Department of Dermatology [address] [place] [address], [facility] [phone] * MS CHMSRG MOHS MG TQ H/N/H/F/G 1ST STAG 5 BLOC, MS CHMSRG MOHS MG TQ H/N/H/F/G EA ADDL STAG (01/25/2022 12:11 PM CDT) Narrative Jennifer Novoa MD - 01/25/2022 12:11 PM CDT Jennifer Novoa MD 01/26/2022 4:47 PM Mohs Micrographic Surgery Operative Note Procedure: Mohs micrographic surgery Date of service: 01/25/2022 Location: right superior centra; forehead 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 No other physician was involved in the cancer removal or pathology interpretation. Assistants: N/A Indications for Mohs Surgery Removal of the patient's tumor is complicated by the following clinical features: Clinical area critical for tissue conservation (Area M: cheeks, forehead, scalp, neck, jawline, pretibial surface). Based on my medical judgement, Mohs surgery is the most appropriate treatment for this cancer compared to other treatments. I discussed alternative treatments to Mohs surgery and specifically discussed the risks and benefits of curettage, excision with permanent sections, and foregoing treatment. The rationale for Mohs was explained to the patient and consent was obtained. The risks, benefits and alternatives to therapy were discussed in detail. Specifically, the risks of infection, scarring, bleeding, prolonged wound healing, incomplete removal, allergy to anesthesia, nerve injury and recurrence were addressed. Prior to the procedure, the treatment site was clearly identified and confirmed by the patient. All components of Heaters Protocol/PAUSE Rule completed. STAGE I: The patient was placed on the operating table. The cancer was identified and outlined. The entire surgical field was prepped with hibiclens. The surgical site was anesthetized using Lidocaine 1% with epinephrine 1:100,000 buffered with sodium bicarbonate 8.4% in a 1:10 ratio.The area of clinically apparent tumor was debulked with a 2 mm curette. The layer of tissue was then surgically excised using a #15 blade and was then transferred onto a specimen sheet maintaining the orientation of the specimen. Hemostasis was obtained using monopolar electrodesiccation. The wound site was then covered with a dressing while the tissue samples were processed for examination. The specimen was oriented, mapped and divided. Each section was then inked and processed in the Mohs lab using the Mohs protocol and submitted for frozen section. The histopathologic sections were reviewed by the surgeon in conjunction with the reference map. Total blocks: 1 Total slides: 4 Frozen sections were examined by the surgeon and revealed residual tumor. Tumor was indicated in red on the reference map. Cell morphology: full thickness epidermal squamous cell atypia with cellular pleomorphism Pathological pattern: Squamous cell carcinoma in situ Depth of invasion: Epidermis Scar tissue: Not Present Perineural invasion: Not Present Inflammation obscuring possible tumor presence: Not Present STAGE II: The patient was prepped in the same fashion as the first stage. Using a similar technique to that described above, a thin layer of tissue was removed from all areas where tumor was visible on the previous stage. The tissue was again oriented, mapped, dyed, and processed as above. Histopathologic sections were reviewed in conjunction with the reference map. Total blocks: 1 Total slides: 2 Frozen sections were examined by the surgeon and revealed residual tumor. Tumor was indicated in red on the reference map. No additional histologic findings appreciated. STAGE III: The patient was prepped in the same fashion as the first stage. Using a similar technique to that described above, a thin layer of tissue was removed from all areas where tumor was visible on the previous stage. The tissue was again oriented, mapped, dyed, and processed as above. Histopathologic sections were reviewed in conjunction with the reference map. Total blocks: 1 Total slides: 2 Frozen sections were examined by the surgeon and revealed: No additional tumor. Histology: No malignant cells seen in the sections examined. No additional histologic findings appreciated. [place] [facility] CLIA # [id number] Mohs Director: Jennifer Novoa MD REPAIR: Secondary Intention The patient is status-post Mohs micrographic surgery. The surgical site was examined with attention to normal anatomic and functional relationships. After consideration and discussion of multiple options with the patient, it was determined that healing by secondary intention would offer the best chance for preservation/worship of all normal anatomic and functional relationships. The patient verbalized understanding and agreed with this plan. It is also understood that should second intention healing be sub-optimal, additional procedures such as scar revision, steroid injection or dermabrasion may be recommended. The open wound was cleaned and a thick layer of vaseline was applied. A pressure dressing consisting of non-adherent gauze, gauze, and hypafix was applied. Wound care was discussed with the patient both orally and in writing. The patient stated understanding and agreement with the course of care. He will follow up in [address] Novoa performed the entire surgery, and documentation used to initiate this operative report. I entered the information in our [employer] DocFlowsheet with the information provided by Dr. Novoa on her handwritten, paper format, surgical worksheet, which was then used to initiate the create of this note. Dr. Novoa then reviewed and edited the note as needed to complete the note. Lucero Donnelly LPN I have reviewed the note, edited it as necessary and performed the entire procedure. 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 PostOp Size: 2.2 x 2.0 cm. [facility] Level of Defect: fat Procedure: The patient was placed supine on the operating table. The cancer was identified, outlined with a marker, and verified by the patient. The entire surgical field was prepped with Hibiclens. The surgical site was anesthetized using Lidocaine 1% with epinephrine 1:100,000 buffered with sodium bicarbonate 8.4% in a 1:10 ratio. The area of clinically apparent tumor was debulked with 2mm curette. The layer of tissue was then surgically excised using a #15 blade and was then transferred onto a specimen sheet maintaining the orientation of the specimen. Hemostasis was obtained using monopolar electrodessication. The wound site was then covered with a dressing while the tissue samples were processed for examination. The excised tissue was transported to the [facility] histology laboratory maintaining the tissue orientation. The tissue specimen was relaxed so that the entire surgical margin was in a a single horizontal plane for sectioning andinked for precise mapping. A precise reference map was drawn to reflect the sectioning of the specimen, colored inking of the margins, and orientation on the patient. The tissue was processed using horizontal sectioning ofthe base and continuous peripheral margins. The histopathologic sections were reviewed in conjunction with the reference map. Total blocks: 1 Total slides: 3 No additional tumor was identified on microscopic examination, therefore Mohs surgery was complete. Reconstruction: Complex Closure Primary Surgeon : Bright Spiral Binder Surgeon : Matt The patient was taken to the operative suite and placed supine on the operating room table. The defect was identified. Appropriate markings were made with a marking pen to plan the repair. The area was infiltrated with Lidocaine 1% with epinephrine 1:100,000 buffered with sodium bicarbonate 8.4% in a 1:10 ratio and prepped with and draped with sterile towels. The wound was debeveled and undermined widely. Hemostasis was obtained using monopolar electrodessication. Care was taken to orient tension vectors of the closure to minimize distortion of free margins. Cones of redundant tissue were then excised within relaxed skin tension lines on both sides of the defect and additional buried sutures were placed in a similar fashion where needed. Percutaneous 4-0 monocryl; 6-0 fast absorbing gut sutures were carefully placed for maximum eversion and meticulous approximation. Repair Size: 4.7 cm Sutures Used: 4-0 monocryl; 6-0 prolene The wound was cleansed with saline and vaseline was applied along the wound surface. A sterile pressure dressing was applied. Wound care instructions were given verbally and in writing. The patient left the operating suite in stable condition. Patient was informed that additional refinement of the resulting surgical scar may be used as a second stage of this reconstruction. The Attending surgeon was present for beltre portions of the procedure and always immediately available. Dr. Novoa performed the beltre portions of the surgery, and documentation used to initiate this operative report. I entered the information in our [employer] DocFlowsheet with the information provided by Dr. Novoa on her handwritten, paper format, surgical worksheet, which was then used to initiate the create of this note. Dr. Novoa then reviewed and edited the note as needed to complete the note. Mary Pierre RN I have reviewed the note, edited it as necessary and performed the beltre portions of the procedure. Jennifer Novoa MD Integration Specialist Jennifer Novoa MD PROCEDURE/MINOR SURG ICAL ORDERABLES Care Teams Director Sales And Marketing Relationship Specialty Start Date End Date Camacho Jacobsen MD PCP - General 10/12/13
--- OUTSIDE RECORDS SUMMARY | 2024-11-20 12:39 | XMS_ITS | Clinical Summary ---
Author Organization [employer] [facility] Address [address] [place]: Epic Prelude ADT [place]TE DIOP [address] Care Team Providers Care Securities Vault Supervisor Name Role Phone Unavailable Primary Care Provider Unavailabl e Social History Tobacco Use Types Packs/Day Years Used Date Smoking Tobacco: Never Assessed Sex and Gender Information Value Date Recorded Sex Assigned at Not on file Legal Sex Male 11:25 PM CDT Gender Identity Not on file Sexual Orientation Not on file Plan of Treatment Health Maintenance Due Date Last Done Comments DTAP/TDAP/TD VACCINES (1 - Tdap) 1966 PNEUMOCOCCAL VACCINE 65+ YEARS (1 of 1 - PCV) 11/02/18 98 ZOSTER VACCINE (1 of 2) 1997 RSV VACCINE (60+ or ) (1 - 1-dose 75+ series) 2022 INFLUENZA VACCINE (#1) 2024
--- OUTSIDE RECORDS SUMMARY | 2024-11-20 12:39 | XMS_ITS | Clinical Summary ---
Author Organization [facility] Address [address] [place] [address] Phone Care Team Providers Care Wrister Name Role Phone Camacho Jacobsen MD Primary Care Provider [phone] Social History Tobacco Use Types Packs/Day Years Used Date Smoking Tobacco: Never Assessed Sex and Gender Information Value Date Recorded Sex Assigned at Not on file Legal Sex Male 11:36 PM CDT Gender Identity Not on file Sexual Orientation Not on file Plan of Treatment Health Maintenance Due Date Last Done Comments Hepatitis C Virus (HCV) Screening 1945 Zoster Immunization (3 of 3) 07/14/2021 05/19/2021, 07/18/2012 Respiratory Syncytial Virus (RSV) Immunization (Adult) (1 - 1-dose 75+ series) 2022 Influenza Immunization (#1) 06/10/202406/10, 06/24/2020, 06/16/2019, Additional history exists SARS-COV-2 Immunization ( season) 2024 02/05/2022 TdaP Immunization Completed 02/11/2006 Pneumococcal Immunization (50+ years) Completed 12/04/2014, 11/27/2012 DTaP/Tdap/Td Immunization Discontinued 01/26/2016, 02/2006 Hepatitis B Immunization Aged Out No longer eligible based on patient's age to complete this topic Meningococcal Immunization (ACWY) Aged Out No longer eligible based on patient's age to complete this topic Rotavirus Immunization Aged Out No lo nger eligible based on patient's age to complete this topic Insurance MEDICARE C [facility] Care Teams Wrister Relationship Specialty [place] [address] [place] [id number] PCP - General Internal Medicine 05/20/23
--- OUTSIDE RECORDS SUMMARY | 2024-11-20 12:39 | XMS_ITS | Referral Summary ---
Author Organization [facility] Address [address] [place] [address] Care Team Providers Care Mineral Resources Inspector Name Role Phone Camacho Jacobsen MD Primary Care Provider [phone] Source Comments [facility],non-owned Affiliates and Associated Physician Practices is amultiple site organization consisting of ambulatory clinics and hospital sitesin [place], [place], [place]. This disclosure is being madepursuant to the Care Everywhere program and may not contain all information available regarding this patient. Last updated 18.[facility] Allergies No known active allergies Medications * Be aware that medications may not be up to date on this document. Alwaysverify current medications with the patient. Medication Sig Dispensed Refills Start Date End Date Status Cholecalciferol (VITAMIN D) 2000 units capsule Take 2,000 Units by mouth once daily Active Meloxicam 5 MG CAPS Take by mouth once daily Active ferrous sulfate 325 (65 FE) MG tablet Take 1 (one) tablet by mouth once daily Active dilTIAZem HCl Coated Beads (DILTIAZEM CD PO) Take 240 mg by mouth once daily Active rosuvastatin (Crestor) 10 MG tablet Take 1 (one) Half Tablet by mouth once daily Active Active Problems Problem Noted Date Diagnosed Date Cardiomyopathy, dilated 01/19/2023 04/05/20 23 Hyperlipidemia 02/24/2022 04/05/2023 Hypertension 02/24/2022 04/05/2023 Left bundle branch block 02/24/2022 023 Encounter for health-related screening 04/05/2023 Dysphagia 02/19/2020 04/05/2023 Overview (04/05/2023): Added automatically from request for surgery [id number] Added automatically from request for surgery [id number] Medication management 06/06/2017 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
--- OUTSIDE RECORDS SUMMARY | 2024-11-20 12:39 | XMS_ITS | Encounter Summary ---
Author Organization [facility] Address [address] [place] [address] Care Team Providers Care Commercial Real Estate Attorney Name Role Phone Camacho Jacobsen MD Primary Care Provider [phone] Encounter Details Date Type Department Care Team (Late st Contact Info) Description 07/29/2020 Lab Requisition [facility] [address] [place] [id number] [place] [address] Social History Tobacco Use Types Packs/Day Years [...] Priority Date/Time Associated Diagnosis Comments DERMATOPATHOLOGY Routine 07/28/2020 12:0 0 AM CDT documented in this encounter Results * DERMATOPATHOLOGY (07/28/2020 12:00 AM CDT) Case Report Dermatopathology Report Case: [id number] Authorizing Provider: Isaac Sims MD Collected: 07/28/2020 12:00 AM Ordering Location: [facility] Received: 07/29/2020 10:45 AM Pathologist: Gwendolyn Romano MD Specimen: Skin, left lower sternum 10/21/202 0 3:22 PM CDT DERMATOPATHOLOGY LABORATORY Final Diagnosis Specimen A. SKIN, left lower sternum: DERMAL SCAR (L90.5) 0 3:22 PM CDT DERMATOPATHOLOGY LABORATORY Clinical History R/O scar, SCC,BCC vs other 0 3:22 PM CDT DERMATOPATHOLOGY LABORATORY Gross Description Specimen A: Received is one formalin filled container labeled with the patient's name and designated left lower sternum. The specimen consists of a shave biopsy measuring 9x8x3 mm. Jar 0. 0 3:22 PM CDT DERMATOPATHOLOGY LABORATORY Microscopic Description Specimen A. SKIN, left lower sternum: There are fibroblasts and collagen bundles oriented parallel to the skin surface with elongated blood vessels, some of which are oriented perpendicular to the skin surface. 0 3:22 PM CDT DERMATOPATHOLOGY LABORATORY Disclaimer An external and internal positive and negative controls are appropriate for the histochemical, immunohistochemical and immunofluorescence stain(s) in this case (if any), except where stated explicitly. The performance characteristics of the stain(s) cited in this report were developed and its performance characteristic determined by the Dermatopathology Laboratory at [facility], directed by Dr. Carol Vaca. These tests need not be, and therefore are not, approved by the [place] Food and Drug Administration. The tests are used for clinical purposes. Billing Codes Specimen Charges Stain Charges 47253 1 0 3:22 PM CDT DERMATOPATHOLOGY LABORATORY Embedded Images 0 3:22 PM CDT DERMATOPATHOLOGY LABORATORY Pathology/Cytolog y TISSUE SPECIMEN FROM SKIN / Unknown 07/28/2020 07/29/2020 10:45 AM CDT Isaac Sims MD LAB - PATHOLOGY/CYTO LOGY ORDERABLES DERMATOPATHOLOGY LABORATORY [facility] - Department of Dermatology [address], [address] [phone] documented in this encounter Visit Diagnoses Not on filedocumented in this encounter Care Teams Commercial Real Estate Attorney Relationship Specialty Start Date End Date Camacho Jacobsen MD PCP - General 10/12/13 documented as of this encounter
--- OUTSIDE RECORDS SUMMARY | 2024-11-20 12:39 | XMS_ITS | CONTINUITY OF CARE DOCUMENT ---
Author Name julian sandiaugustin Address Unknown Organization [facility] Address [address] [facility] [address] [place] [address] Phone [phone] Care Team Providers Care Well Blower Name Role Phone Ashok KIM, Justin Unavailable ROSARIO KIM, LYN Unavailable [phone] ROSARIO KIM, LYN Unavailable [phone] PROBLEMS Condition Status Date Provider Notes Cardiology examination active Justin Pulido MD Anemia, iron deficiency active Libbysamia Machado miglia [facility] [place] plaque active Libby Urena a [facility] Cardiomyopathy, dilated active Justin anderson MD Left bundle branch block active Justin shabazz MD Hypertension active Justin Pulido MD Hyperlipidemia active Justin Pulido MD Screening active Justin Pulido MD ENCOUNTERS Date Type Provider Location Encounter Diag nosis - In-person encounter Office Visit Justin Pulido MD [facility] Cardiology examination - In-person encounter Office Visit Justin Pulido MD [facility] [place] plaqueAnemia, iron deficienc y - In-person encounter Office Visit Justin Pulido MD [facility] Cardiomyopathy, dilated - In-person encounter Office Visit Justin Pulido MD [facility] - In-person encounter Office Visit Justin Pulido MD [facility] Office - In-person encounter Office Visit Justin Pulido MD [facility] - In-person encounter Office Visit Justin Pulido MD [facility] ScreeningHyperlipidemiaHypertensionLeft bundle branch block VITAL SIGNS Date Observation Value Provider Body Mass Index (Ratio) 28.08 kg/m2 Maynor Pulido MD blood pressure, cuff size regular Amos sriairam Dumont blood pressure, diastolic 64 mm[Hg] Amos reyna Dumont blood pressure, systolic 124 mm[Hg] Rob quintero Dumont oxygen saturation, oximetry 98 % Ramonita Dumont pulse rate 65 /min Ramonita Dumont respiratory rate E&M 12 /min Ramonita Dumont weight E&M 174 [lb_av] Ramonita Dumont height E&M 66 [in_i] Ramonita Dumont Body Mass Index (Ratio) 28.08 kg/m2 Maynor Pulido MD blood pressure, cuff size regular Robert [facility] blood pressure, diastolic 71 mm[Hg] Robert ashley blood pressure, systolic 125 mm[Hg] Heather cat pulse rate 64 /min Jus oxygen saturation, oximetry 96 % Jus respiratory rate E&M 12 /min Jus weight E&M 174 [lb_av] Jus height E&M 66 [in_i] Jus y Body Mass Index (Ratio) 28.57 kg/m2 Maynor Pulido MD blood pressure, diastolic 88 mm[Hg] Juan Manuel Gasca blood pressure, systolic 143 mm[Hg] [place] oxygen saturation, oximetry 95 % Josephine Gasca respiratory rate E&M 16 /min Josephine Durham saida pulse rate 66 /min Josephine Gasca weight E&M 177 [lb_av] Josephine Gasca Body Mass Index (Ratio) 28.40 kg/m2 Maynor Pulido MD blood pressure, diastolic 69 mm[Hg] Ra cielo Pulido MD blood pressure, systolic 135 mm[Hg] Dank Pulido MD oxygen saturation, oximetry 97 % Mary Carmen Fernandez respiratory rate E&M 16 /min Savannah Fernandez pulse rate 77 /min Mary Carmen herman weight E&M 176 [lb_av] Mary Carmen herman blood pressure, cuff size large Linn arce [place] height E&M 66 [in_i] Mary Carmen herman Body Mass Index (Ratio) 28.24 kg/m2 Maynor Pulido MD blood pressure, cuff size large Ke irenei Zee blood pressure, diastolic 71 mm[Hg] Ke rri Rituneamalia blood pressure, systolic 145 mm[Hg] Tanvi Koch oxygen saturation, oximetry 97 % Kaity Koch respiratory rate E&M 14 /min Kaity G felicitaeneamalia pulse rate 65 /min Kaity Erwin [facility] weight E&M 175 [lb_av] Kaity Ritunerylande [facility] height E&M 66 [in_i] Kaity Chaneyneani [facility] Body Mass Index (Ratio) 27.76 kg/m2 Maynor Pulido MD oxygen saturation, oximetry 98 % Chastity Cara pulse rate 69 /min Chastity Cara blood pressure, diastolic 74 mm[Hg] Ch astity Cara blood pressure, systolic 122 mm[Hg] Marzena stity Cara weight E&M 172 [lb_av] [facility] respiratory rate E&M 16 /min Marzenastit y Cara height E&M 66 [in_i] [facility] Body [facility] Index (Ratio) 28.08 kg/m2 Maynor Pulido MD blood pressure, diastolic 97 mm[Hg] Raegan nkLogromulo blood pressure, systolic 158 mm[Hg] Alysha Leblancromulo blood pressure, diastolic 97 mm[Hg] Erica Silva Adria blood pressure, systolic 158 mm[Hg] Teri wisdommaryedy [place] oxygen saturation, oximetry 99 % Teribishnufantaedy [place] respiratory rate E&M 18 /min Shani joannejil [place] pulse rate 57 /min Marcus fagan blood pressure, cuff size regular Erica [place] weight E&M 174 [lb_av] Marcus fagan height E&M 66 [in_i] Marcus fagan ALLERGIES Allergy Name Onset Date Reaction Criticality Status LOSARTAN Low Criticality active HISTORY OF MEDICATION USE Medication Status Instructions Dates Provider Indications Com ments diltiazem HCl (Tiazac) 240 mg capsule,extende d release 24 hr active TAKE 1 CAPSULE BY MOUTH EVERY DAY Kaity Koch Tiadylt ER 240 mg capsule,extende d release 24 hr active TAKE 1 CAPSULE BY MOUTH EVERY DAY Jus biotin 1 mg capsule active take one capsule by mouth daily Ramonita Dumont ferrous sulfate 325 mg (65 mg iron) tablet active take one tablet by mouth every other day Ramonita Dumont Vitamin D2 1,250 mcg (50,000 unit) capsule completed - Jus Vitamin D2 unspecified unspecified active take 2000 IU once daily Ramonitabren Dumont rosuvastatin 10 mg tablet active TAKE 1 TABLET BY MOUTH EVERY DAY Jus diltiazem HCl 240 mg capsule,extende d release 24 hr completed 1 capsule once a day - Jus diltiazem HCl 120 mg capsule,extende d release 24hr completed Take 1 capsule by mouth once a day - Justin Pulido MD Repatha SureClick 140 mg/mL pen injector completed Inject 1 pen injector subcutaneously every two weeks - Justin Pulido MD nifedipine 60 mg tablet extended release 24hr completed Take 1 tablet by mouth once a day TAKE 1 TABLET BY MOUTH EVERY DAY - Justin Pulido MD losartan 100 mg tablet completed Take 1 tablet by mouth once a day - Justin Pulido MD losartan 25 mg tablet completed 1 tablet once a day - Justin Pulido MD rosuvastatin 10 mg tablet completed Take 1 tablet once a day - Daphne Thorne meloxicam 15 mg tablet completed 1/2 tablet daily - Kaity Koch SOCIAL HISTORY Date Observation Value Provider drug use no Justin Herman alcohol use, average drinks per day social Justin Pulido MD alcohol use yes Justin Herman passive cigarette sm christiano exposure no Justin Pulido MD smoking status Never smoker Justin Pulido MD drug use no Libby Ventimig ana cristina [facility] alcohol use, average drinks per day social Libby Ventimiglia [facility] alcohol use yes Libby Ventimig ana cristina [facility] smoking status Never smoker Libby townsend [facility] social history E&M Marital Statu s: Sandra colindres: 1 O ccupation: Retired Smoking History: P atient has never smoked. Justin Pulido MD social history reviewed E&M revi ewed - no changes required Justin Pulido MD seatbelt usage 100 % Josephine Gasca caffeine use, averag e drinks per day <1 Josephine Gasca drug use no Josephine Gasca alcohol use no Josephine Gasca smoking status Never smoker Josephine Gasca passive cigarette sm christiano exposure no Justin Pulido MD social history E&M Marital Statu s: Sandra colindres: 1 O ccupation: Retired Smoking History: P atient has never smoked. Justin Pulido MD social history reviewed E&M revi ewed - no changes required Justin Pulido MD Exercise counseling yes Mary Carmen Fernandez smoking status Never smoker Mary Carmen Reza social history E&M Marital Statu s: Sandra colindres: 1 O ccupation: Retired Smoking History: P atient has never smoked. Justin Pulido MD social history reviewed E&M revi ewed - no changes required Justin Pulido MD Exercise counseling yes Kaity rausch smoking status Never smoker Kaity prieto social history E&M Marital Statu s: Sandra colindres: 1 O ccupation: Retired Smoking History: P atient has never smoked. Justin Pulido MD social history reviewed E&M revi ewed - no changes required Justin Pulido MD smoking status Never smoker Vianca Lynchu e Exercise counseling yes Vianca Marroquin social history E&M Marital Statu s: Sandra colindres: 1 O ccupation: Retired Justin Pulido MD social history reviewed E&M revi ewed - no changes required Justin Pulido MD Exercise counseling yes Chavezfanta [place] FAMILY HISTORY Family Member Condition Mother Family History of Re nal Disease: Father Family History of Co ngestive Heart Failure: INSURANCE PROVIDERS Payer name Policy type / Coverage type [place] [employer] party ID [employer] MEDICARE GARETH PPO Medicare [id number] ADVANCE DIRECTIVES Name Date POWER OF MDS MANAGER LIVING WILL ON FILE TREATMENT PLAN Date Name Performer [id number],S,B P 125/71 well controlled W ill continue present medication regimen H is updated medication list for this problem includes: Diltiazem Hcl 240 Mg Capsule,extended Release 24 Hr (Diltiazem hcl) ..... 1 capsule once a day [facility] [id number],B,has improved with oral iron [facility] [id number],B,L DL 80 remains on statin therapy H is updated medication list for this problem includes: Rosuvastatin 10 Mg Tablet (Rosuvastatin) ..... Take 1 tablet by mouth every day [facility] [id number],N,N oted on recent eye exam p atient has no chest pain, SOB or neurolgic deficit H e had stress last year negative for ischemia E cho 01/2023 showed normal EF C arotid last year less than 50% stenosis A s asymptomatic at this time will continue medical management [facility] [id number],B,I mproved E F of 60% with no valvular abnormalities on last echo 01/2022 Rutledge Walter [facility] [id number],S, Justin anderson MD [id number],S, Justin anderson MD [id number],S, Justin anderson MD [id number],S, Justin anderson MD [id number],S, Justin anderson MD [id number],C,C ould not tolerate statin. Will see what his lipid panel is before considering Repatha. Justin Pulido MD [id number],C,H as reacted to multiple medications. W ill start RPM (remote patient monitoring), no new meds at this time. He may not need any. Justin Pulido MD [id number],S, Justin anderson MD [id number],S, Justin anderson MD [id number],S, Justin anderson MD [id number],S, Justin anderson MD [id number],N, Justin anderson MD Cardiology Justin Pulido MD Cardiology Justin Pulido MD Cardiology Justin Pulido MD Cardiology:No new sy mptoms W ill recheck ECHO to see if EF is still normal Improved E F of 60% with no valvular abnormalities on last echo 01/2022 Justin Pulido MD Cardiology:BP 125/71 well controlled W ill continue present medication regimen H is updated medication list for this problem includes: Diltiazem Hcl 240 Mg Capsule,extended Release 24 Hr (Diltiazem hcl) ..... 1 capsule once a day Libby Watson [facility] Cardiology:has improved with ora l iron Libbysamia Watson [facility] Cardiology:LDL 80 re kathleen on statin therapy H is updated medication list for this problem includes: Rosuvastatin 10 Mg Tablet (Rosuvastatin) ..... Take 1 tablet by mouth every day Libby Watson [facility] Cardiology:Noted on recent eye exam p atient has no chest pain, SOB or neurolgic deficit H e had stress last year negative for ischemia E cho 01/2023 showed normal EF C arotid last year less than 50% stenosis A s asymptomatic at this time will continue medical management Libby Watson [facility] Cardiology:Improved E F of 60% with no valvular abnormalities on last echo 01/2022 Libby Watson [facility] Cardiology Justin Pulido MD Cardiology Justin Pulido MD Cardiology Justin Pulido MD Cardiology Justin Pulido MD Cardiology Justin Pulido MD Cardiology:Could not tolerate statin. Will see what his lipid panel is before considering Repatha. Justin Pulido MD Cardiology:Has react ed to multiple medications. W ill start RPM (remote patient monitoring), no new meds at this time. He may not need any. Justin Pulido MD Cardiology Justin Pulido MD Cardiology Justin Pulido MD Cardiology Justin Pulido MD Cardiology Justin Pulido MD Cardiology Justin Pulido MD Date Name Complete Echo Complete Echo RPM (remote patient monitoring) Carotid Duplex Bilat eral Complete Echo Stress Exercise Card iolite HISTORY OF PROCEDURES Procedure Date Procedure Name Provider Procedure Notes S tatus EKG Justin Pulido MD complete d EKG Justin Pulido MD complete d
--- OUTSIDE RECORDS SUMMARY | 2024-11-20 12:39 | XMS_ITS | Encounter Summary ---
Author Organization [facility] Address [address] [place] [address] Phone Care Team Providers Care Child Care Sitter Name Role Phone Camacho Jacobsen MD Primary Care Provider [phone] Camacho Jacobsen MD Primary Care Provider [phone] Encounter Details Date Type Department Care Team (Latest Contact Info) Description 02/19/2022 [facility] [address] [place] [address] Conchita Newman, DIRECTOR OF REHABILITATION AND WELLNESS, CLIENT ADMINISTRATOR [address] [place] [address] Pulsatile tinnitus (Primary Dx); Left bundle-branch block, unspecified Social History Tobacco Use Types Packs/Day Years Used Date Smoking Tobacco: Never Assessed Sex and Gender Information Value Date Recorded Sex Assigned at Not on file Legal Sex Male 11:36 PM CDT Gender Identity Not on file Sexual Orientation Not on file COVID-19 Exposure Response Date Recorded In the last 10 days, have yo u been in contact with someone who was confirmed or suspected to have Coronavirus/COVID-19? No / Unsure 02/16/2022 3:36 PM CDT documented as of this encounter Plan of Treatment Not on file documented as of this encounter Visit Diagnoses Diagnosis Pulsatile tinnitus- Primary Unspecified tinnitus Left bundle-branch block, unspecified documented in this encounter Care Teams Child Care Sitter Relationship Specialty Start Date End Date Camacho Jacobsen MD PCP - General Internal Medicine 02/08/22 02/15/23 Camacho Jacobsen MD [facility] [place] [address] PCP - General Internal Medicine 05/20/23 documented as of this encounter
--- OUTSIDE RECORDS SUMMARY | 2024-11-20 12:39 | XMS_ITS | Encounter Summary ---
Author Organization [facility] Address [address] [place] [address] Phone Care Team Providers Care Fur Operator Name Role Phone Camacho Jacobsen MD Primary Care Provider [phone] Camacho Jacobsen MD Primary Care Provider [phone] Encounter Details Date Type Department Care Team (Latest Contact Info) Description 02/19/2022 [facility] [address] [place] [address] Conchita Newman, CONSTRUCTION PROJECT MANAGER, ELEMENT BURNER [address] [place] [address] Pulsatile tinnitus (Primary Dx); Left bundle-branch block, [...] unspecified documented in this encounter Care Teams Fur Operator Relationship Specialty Start Date End Date Camacho Jacobsen MD PCP - General Internal Medicine 02/08/22 02/15/23 Camacho Jacobsen MD [facility] [place] [address] PCP - General Internal Medicine 05/20/23 documented as of this encounter
--- OUTSIDE RECORDS SUMMARY | 2024-11-20 12:39 | XMS_ITS | Referral Summary ---
Author Organization [facility] Address [id number] [place] [address] Care Team Providers Care [facility] Psychiatrist Name Role Phone Trell Rojas MD Primary Care Provider [phone] Encounters Date Type Department Care Team Description 11/17/2024 1:14 PM TECHNICAL INSPECTOR - 11/17/2024 11:59 PM TECHNICAL INSPECTOR Hospital Encounter [facility] 1 [place] [address] Left foot pain Discharge Disposition: Discharge to home or self care 11/17/2024 10:45 AM TECHNICAL INSPECTOR Office Visit [facility] [address] [place] [id number] Ayana Cárdenas, CRISTIANO Left foot pain (Primary Dx); Acute pain of right knee from Last 3 Months Allergies Active Allergy Reactions Criticality Noted Date Comments Losartan Edema Medium 07/12/2023 Nifedipine Edema Medium 11/17/2024 Medications melatonin 5 mg tablet 1poqhs 0 0 4 Active Additional Information Patient not taking.Reported on 11/17/2024 cholecalcifero l (VITAMIN D-3) 2,000 unit capsule 1 capsule (2,000 Units total) daily Active cyclobenzaprin e (FLEXERIL) 10 mg tablet Take 1 tablet (10 mg total) by mouth daily as needed for muscle spasms. 30 tablet 5 7 Active Additional Information Patient not taking.Reported on 11/17/2024 meloxicam (MOBIC) 15 mg tablet meloxicam 15 mg tablet 0 Active biotin 1 mg capsule biotin 1 mg capsule Active ergocalciferol (Vitamin D2) 50,000 unit capsule Vitamin D2 unspecified unspecified Active ferrous sulfate 325 mg (65 mg of elemental iron) tablet ferrous sulfate 325 mg (65 mg iron) tablet Active rosuvastatin (Crestor) 10 mg tablet Take 1 tablet (10 mg total) by mouth daily Active diltiazem LA (CARDIZEM LA) 240 mg 24 hr tablet Take 1 tablet (240 mg total) by mouth daily Active losartan (COZAAR) 25 mg tablet Take 50 mg by mouth daily 11/17/19 25 Discontin ued(Alter damien therapy) rosuvastatin (CRESTOR) 10 mg tablet Take 10 mg by mouth daily 11/17/19 25 Discontin ued(Dupli rashid order) NIFEdipine (PROCARDIA XL/ADALAT CC) 60 mg 24 hr tablet Take by mouth 2 11/17/19 25 Discontin ued(Alter damien therapy) Tiadylt ER 240 mg 24 hr capsule Take by mouth daily 11/17/19 25 Discontin ued(Alter damien therapy) Active Problems Problem Noted Date Diagnosed Date Anemia 07/21/2023 Encounter for screening colonoscopy 07/21/2023 Dysphagia 02/19/2020 Overview (02/19/2020): Added automatically from request for surgery [id number] Difficulty in swallowing 02/19/2020 Overview (03/19/2020): Added automatically from request for surgery [id number] Healthcare maintenance 06/06/2017 Medication management 06/06/2017 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 Overview (01/13/2017): Hypertrophy, anal papillae Vitamin D deficiency 02/23/2014 Overview (01/12/2017): VITAMIN D DEFICIENCY NOS Immunizations Name Administration Dates Next Due Influenza, Split 07/18/2012,09/22/2010 Influenza, Trivalent, High D ose, Split, Preservative Free, Intramuscular 06/16/2019,07/20/2017,07/12/2016,08/07,07/23/2014,08/29/2013 Influenza, Trivalent, IM (MDV) 07/29/2009 Pneumococcal Conjugate PCV 13 12/04/2014 Pneumococcal Polysaccharide PPV23 11/27/2012 TD Preservative Free 01/26/2016 Tdap 02/11/2006 ZOSTER LIVE 07/18/2012 Social History Tobacco Use Types Packs/Day Years Used Date Smoking Tobacco: Never Smokeless Tobacco: Never Alcohol Use Standard Drinks/Week Comments No 0 (1 standard drink = 0.6 oz pur e alcohol) Sex and Gender Information Value Date Recorded Sex Assigned at Not on file Legal Sex Male 9:47 AM TECHNICAL INSPECTOR Gender Identity Not on file Sexual Orientation Not on file Last Filed Vital Signs Vital Sign Reading Time Taken Comments Blood Pressure 120/70 11/17/2024 10:23 AM TECHNICAL INSPECTOR Pulse 87 11/17/2024 10:23 AM TECHNICAL INSPECTOR Temperature 36.5 C (97.7 F) 11/17/2024 10:23 AM TECHNICAL INSPECTOR Respiratory Rate 16 11/17/2024 10:23 AM TECHNICAL INSPECTOR Oxygen Saturation 98% 11/17/2024 10:23 AM TECHNICAL INSPECTOR Inhaled Oxygen Concentration - - Weight 78.9 kg (174 lb) 11/17/2024 10:23 AM TECHNICAL INSPECTOR Height 167.6 cm (5' 6 ) 11/17/2024 10:23 AM TECHNICAL INSPECTOR Body Mass Index 28.08 11/17/2024 10:23 AM TECHNICAL INSPECTOR Plan of Treatment Not on file Procedures Procedure Name Priority Date/Time Associated Diagnosis Comments XR FOOT LEFT 3 OR MORE VIEWS Schedule NIKI, Read NIKI (Appt Today, Awaiting Results) 11/17/2024 1:33 PM TECHNICAL INSPECTOR Left foot pain COLONOSCOPY IMAGES 07/09/2016 from Last 3 Months or Most Recently Relevant to Health Maintenance Results * XR Foot Left 3+ Vw (11/17/2024 1:33 PM TECHNICAL INSPECTOR) Anatomical Region Laterality Modality Lower Extremities, Foot Left Computed Radiography 11/17/2024 8:27 PM TECHNICAL INSPECTOR Narrative 11/17/2024 8:28 PM TECHNICAL INSPECTOR EXAM DESCRIPTION: XR FOOT LEFT 3 OR MORE VIEWS REASON FOR STUDY: Dorsal aspect left foot with swelling and pain x3 days. No known injury. Concern for fracture. TECHNIQUE: 3 radiographic view(s) of the left foot . COMPARISON: 03/10/2022 FINDINGS: BONES/JOINTS: There is no acute fracture, malalignment or osseous abnormality. The joint spaces are normal. SOFT TISSUES: Within normal limits. IMPRESSION: No acute osseous abnormality. THIS IS AN ELECTRONICALLY VERIFIED FINAL REPORT 11/17/2024 8:28 PM - Electronically signed by Bladimir Fitch M.D. KT: ELISE Report ID: [id number] Reading Location: [id number] Procedure Note Bladimir Fitch MD - 11/17/2024 EXAM DESCRIPTION: XR FOOT LEFT 3 OR MORE VIEWS REASON FOR STUDY: Dorsal aspect left foot with swelling and pain x3 days.No known injury. Concern for fracture. TECHNIQUE: 3 radiographic view(s) of the left foot . COMPARISON: 03/10/2022 FINDINGS: BONES/JOINTS: There is no acute fracture, malalignment or osseousabnormality. The joint spaces are normal. SOFT TISSUES: Within normal limits. IMPRESSION: No acute osseous abnormality. THIS IS AN ELECTRONICALLY VERIFIED FINAL REPORT 11/17/2024 8:28 PM - Electronically signed by Bladimir Fitch M.D. KT: ELISE Report ID: [id number] Reading Location: [id number] Ayana Cárdenas NP IMG XR PROCEDURES Final Result * COLONOSCOPY IMAGES (07/09/2016) Anatomical Region Laterality Modality Other Narrative 07/09/2016 Ordered by an unspecified provider. Historical Provider GI PROCEDURE ORDERABLES F inal Result from Last 3 Months or Most Recently Relevant to Health Maintenance Insurance [employer] MEDICARE Advance Directives For more information, please contact: [phone] * Full Code (Latest Code Status on File) Date Activated Date Inactivated Comments 03/24/2020 8:20 AM 03/24/2020 3:53 PM * Full Code Date Activated Date Inactivated Comments 03/24/2020 8:20 AM 03/24/2020 8:20 AM Care Teams [facility] Psychiatrist Relationship Specialty Start Date End Date Trell Rojas MD [address] [place] [address] PCP - General Family Practice 11/17/24
--- OUTSIDE RECORDS SUMMARY | 2024-11-20 12:39 | XMS_ITS | Clinical Summary ---
Author Organization [facility] Address [address] [place] [address] Care Team Providers Care Water Technician Name Role Phone Trell Rojas MD Primary Care Provider [phone] Allergies Active Allergy Reactions Criticality Noted Date [...] tablet Take 50 mg by mouth daily 02/08/20 25 Discontin ued(Alter damien therapy) rosuvastatin (CRESTOR) [...] (02/19/2020): Added automatically from request for surgery [id number] Difficulty in swallowing 02/19/2020 Overview (03/19/2020): Added automatically from request for surgery [id number] Healthcare maintenance 06/06/2017 Medication management 06/06/2017 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 Overview (01/13/2017): Hypertrophy, anal papillae Vitamin D deficiency 02/23/2014 Overview (01/12/2017): VITAMIN D DEFICIENCY NOS Encounters Date Type Department Care Team Description 11/17/2024 1:14 PM FOIL WRAPPER - 11/17/2024 11:59 PM FOIL WRAPPER Hospital Encounter [facility] [address] [place] [address] Left foot pain Discharge Disposition: Discharge to home or self care 11/17/2024 10:45 AM FOIL WRAPPER Office Visit [facility] [address] [place] [address] Ayana Cárdenas NP Left foot pain (Primary Dx); Acute pain of right knee from Last 3 Months Immunizations Name Administration Dates Next Due Influenza, Split 07/18/2012,09/22/2010 Influenza, Trivalent, High D ose, Split, Preservative Free, Intramuscular 06/16/2019,07/20/2017,07/12/2016,08/07,07/23/2014,08/29/2013 Influenza, Trivalent, IM (MDV) 07/29/2009 Pneumococcal Conjugate PCV 13 12/04/2014 Pneumococcal Polysaccharide PPV23 11/27/2012 TD Preservative Free 01/26/2016 Tdap 02/11/2006 ZOSTER LIVE 07/18/2012 Surgical History Surgery Date Site/Laterality Comments OTHER SURGICAL HISTORY TMJ: madibular surgery OTHER SURGICAL HISTORY surgery in both eyes ORAL SURGERY 2000 jaw surgery CHOLECYSTECTOMY 2010 Cholecystectomy Medical History Medical History Date Comments Hx Other Medical lumbar radiculo dennys Hx Other Medical GI Hx Other Medical iron def. anemi a Hx Other Medical TMJ Hx Other Medical dislocation of the jaw Hx Other Medical MAXILLOFACIAL S URGEON Gastroesophageal reflux disease GERD Hx Other Medical 01/10/2012 Cataract remova l Hx Other Medical Skin cancer rem oval Dysphagia Hypertension Family History Medical History Relation Name Comments Hypertension Brother 5 Hypertension; Hypertension Brother 6 Hypertension; Other Brother 7 Alive and well; Other Brother 8 Alive and well; Other Brother 9 Alive and well; Other Brother 10 Alive and well; Other Father ; Hypertension Mother Hypertension; Kidney failure Mother Kidney failur e; Cause of : Kidney failure Other Other 1 No family histo ry of Cancer; Other Other 2 No family histo ry of Diabetes mellitus; Other Other 3 No family histo ry of Alzheimer's Disease; Other Other 4 No family histo ry of Hyperlipidemia; Stroke Sister 2 Stroke; Heart attack Sister 3 Myocardial infa rction; Cause of : Myocardial infarction Relation Name Status Comments Brother 1 Alive Brother 2 Alive Brother 3 Alive Brother 4 Alive Brother 5 Brother 6 Brother 7 Brother 8 Brother 9 Brother 10 Father Mother Other 1 Other 2 Other 3 Other 4 Sister 1 Sister 2 Sister 3 Social History Tobacco Use Types Packs/Day Years Used Date Smoking Tobacco: Never Smokeless Tobacco: Never Alcohol Use Standard Drinks/Week Comments No 0 (1 standard drink = 0.6 oz pur e alcohol) Sex and Gender Information Value Date Recorded Sex Assigned at Not on file Legal Sex Male 9:47 AM FOIL WRAPPER Gender Identity Not on file Sexual Orientation Not on file Obstetrics History Last Filed Vital Signs Vital Sign Reading Time Taken Comments Blood Pressure 120/70 11/17/2024 10:23 AM FOIL WRAPPER Pulse 87 11/17/2024 10:23 AM FOIL WRAPPER Temperature 36.5 C (97.7 F) 11/17/2024 10:23 AM FOIL WRAPPER Respiratory Rate 16 11/17/2024 10:23 AM FOIL WRAPPER Oxygen Saturation 98% 11/17/2024 10:23 AM FOIL WRAPPER Inhaled Oxygen Concentration - - Weight 78.9 kg (174 lb) 11/17/2024 10:23 AM FOIL WRAPPER Height 167.6 cm (5' 6 ) 11/17/2024 10:23 AM FOIL WRAPPER Body Mass Index 28.08 11/17/2024 10:23 AM FOIL WRAPPER Plan of Treatment Health Maintenance Due Date Last Done Comments Hepatitis C Screening 1945 Hepatitis B Screening 1965 Zoster Vaccine (2 of 3) 09/12/2012 07/18/2012 Well Visit 65+ 2012 Depression Screening 06/06/2018 06/06/2017 Fall Risk Assessment 03/24/2021 03/24/2020 Influenza Vaccine (#1) 2024 9, 07/09/2018, 07/20/2017, Additional history exists DTaP/Tdap/Td Vaccine (3 - Td or Tdap) 01/25/2026 01/26/2016, 02/11/2006 Pneumococcal vaccine 65+ Completed 12/04/2014, 11/10 Colon Cancer Screening-CT Colonography Discontinued 07/09/2016, 07/09/2016 Colon Cancer Screening-Colonoscopy Discontinued 07/09/2016, 07/09/2016 Colon Cancer Screening-DNA Stool Discontinued 07/09/20 16, 07/09/2016 Colon Cancer Screening-FIT Discontinued 07/09/2016, Colon Cancer Screening-FOBT Discontinued 07/09/2016, 0 07/09/2016 Colon Cancer Screening-Sigmoidoscopy Discontinued 07/09/2016, 07/09/2016 Colorectal Cancer Screening Discontinued Procedures Procedure Name Priority Date/Time Associated Diagnosis Comments XR FOOT LEFT 3 OR MORE VIEWS Schedule NIKI, Read NIKI (Appt Today, Awaiting Results) 11/17/2024 1:33 PM FOIL WRAPPER Left foot pain COLONOSCOPY IMAGES 07/09/2016 from Last 3 Months or Most Recently Relevant to Health Maintenance Results * XR Foot Left 3+ Vw (11/17/2024 1:33 PM FOIL WRAPPER) Anatomical Region Laterality Modality Lower Extremities, Foot Left Computed Radiography 11/17/2024 8:27 PM FOIL WRAPPER Narrative 11/17/2024 8:28 PM FOIL WRAPPER EXAM DESCRIPTION: XR FOOT LEFT 3 OR [...] Bladimir Fitch M.D. KT: ELISE Report ID: [id number] Reading Location: [id number] Procedure Note Bladimir Fitch MD - 11/17/2024 [...] Bladimir Fitch M.D. KT: ELISE Report ID: [id number] Reading Location: [id number] Ayana Cárdenas NP IMG XR PROCEDURES Final Result * COLONOSCOPY IMAGES (07/09/2016) Anatomical Region Laterality Modality Other Narrative 07/09/2016 Ordered by an unspecified provider. Historical Provider GI PROCEDURE ORDERABLES F inal Result from Last 3 Months or Most Recently Relevant to Health Maintenance Insurance [employer] MEDICARE Advance Directives For more information, please contact: [phone] * Full Code (Latest Code Status on File) Date Activated Date Inactivated Comments 03/24/2020 8:20 AM 03/24/2020 3:53 PM * Full Code Date Activated Date Inactivated Comments 03/24/2020 8:20 AM 03/24/2020 8:20 AM Care Teams Water Technician Relationship Specialty Start Date End Date Trell Rojas MD [address] [place] [address] PCP - General Family Practice 11/17/24
--- OUTSIDE RECORDS SUMMARY | 2024-11-20 12:39 | XMS_ITS | Clinical Summary ---
Author Organization [facility] Address [address] [place] [address] Care Team Providers Care Grad Intern Name Role Phone Camacho Jacobsen MD Primary Care Provider [phone] Source Comments [facility],non-owned Affiliates and Associated Physician Practices is amultiple site organization consisting of ambulatory clinics and hospital sitesin [place], [place], [place] and [place]. This disclosure is being madepursuant to the Care Everywhere program and may not contain all information available regarding this patient. Last updated 18.[facility] Allergies No known active allergies Medications * [...] (04/05/2023): Added automatically from request for surgery [id number] Added automatically from request for surgery [id number] Medication management 06/06/2017 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 Overview (01/22/2022): Overview: Hypertrophy, anal papillae Vitamin D deficiency 02/23/2014 Overview (01/22/2022): Overview: VITAMIN D DEFICIENCY NOS Family History Medical History Relation Name Comments Cancer - Skin, Non Melanoma Brother Cancer - Skin, Non Melanoma Father CVA Mother Cancer - Skin, Non Melanoma Mother Cancer - Skin, Non Melanoma Sister Allergy (Severe) Neg Hx Cancer Neg Hx Cancer - Breast Neg Hx Cancer - Skin, Melanoma Neg Hx Eczema Neg Hx Hemophilia Neg Hx Psoriasis Neg Hx Rashes/Skin Problems Neg Hx Relation Name Status Comments Brother Father Mother Sister Social History Tobacco Use Types Packs/Day Years [...] 01/25/2022 8:28 AM CDT Plan of Treatment Health Maintenance Due Date Last Done Comments HEPATITIS C SCREENING 10/28/1963 DTAP/TDAP/TD VACCINES (1 - Tdap) 1966 PNEUMOCOCCAL VACCINE 50+ (1 of 1 - PCV) 1997 ZOSTER VACCINE (1 of 2) 1997 Respiratory Syncytial Virus (RSV) Vaccine Pt: or over 60 yrs (1 - 1-dose 75+ series) 2022 COVID-19 VACCINE (2023- season) 2024 INFLUENZA VACCINE (#1) 2024 9, 07/20/2017, 07/12/2016, Additional history exists DEPRESSION SCREENING 10/10/2024 MEDICARE AWV CALENDAR YEAR 2024 HEPATITIS B VACCINE Aged Out No longe r eligible based on patient's age to complete this topic HIB VACCINE Aged Out No longer eligi ble based on patient's age to complete this topic HPV VACCINE Aged Out No longer eligi ble based on patient's age to complete this topic MENINGOCOCCAL (Group B) VACCINE Aged Out No longer eligible based on patient's age to complete this topic MENINGOCOCCAL VACCINE Aged Out No brian elis eligible based on patient's age to complete this topic Care Teams Grad Intern Relationship Specialty Start Date End Date Camacho Jacobsen MD PCP - General 10/12/13
[2024-11-20 12:46] LABS: Uric Acid 4.8 mg/dL (3.5-8.5)
[2024-11-20 12:48] LABS: Iron 76 ug/dL (49-181)
[2024-11-20 12:57] LABS: Percent Iron Saturation 28 % (20-50)
== END 2024-11-20 11:15 | disposition home or self-care (01) ==
LOC: ANHLAB 11:15
PROVIDERS: PCP Family Medicine; Referring Provider Nurse Practitioner Family; Visit Provider Nurse Practitioner Family
DX: M10.9 Gout, unspecified (principal); D64.9 Anemia, unspecified
CPT/HCPCS: 36415; 82728; 83540; 83550; 84550; 85027

== ENCOUNTER 2025-03-25 07:45 | Outpatient (CLI) | payer MEDICARE, SELFPAY ==
--- OUTSIDE RECORDS SUMMARY | 2025-03-25 07:48 | XMS_ITS | Encounter Summary ---
Author Organization [facility] Address [address] [place] [address] Phone Care Team Providers Care Review Coordinator Name Role Phone Camacho Jacobsen MD Primary Care Provider [phone] Camacho Jacobsen MD Primary Care Provider [phone] Encounter Details Date Type Department Care Team (Latest Contact Info) Description 02/19/2022 Transcribe Orders [facility] Central Scheduling [address] [place] [address] Conchita Newman, BEATER TENDER, DENTAL APPLIANCE REPAIRER [address] [facility] [address] [address] Pulsatile tinnitus (Primary Dx); Left bundle-branch block, [...] unspecified documented in this encounter Care Teams Review Coordinator Relationship Specialty Start Date End Date Camacho Jacobsen MD PCP - General Internal Medicine 02/08/22 02/15/23 Camacho Jacobsen MD [address] [place] [address] PCP - General Internal Medicine 05/20/23 documented as of this encounter
--- OUTSIDE RECORDS SUMMARY | 2025-03-25 07:48 | XMS_ITS | CONTINUITY OF CARE DOCUMENT ---
Author Name julian sandiaugustin Address Unknown Organization [facility] Address [address] [place] [address] Phone [phone] Care Team Providers Care School Photograph Editor Name Role Phone Ashok KIM, Justin Unavailable [phone] ROSARIO KIM, LYN Unavailable [phone] ROSARIO KIM, LYN Unavailable [phone] PROBLEMS Condition Status Date Provider Notes Screening active Justin Pulido MD Hyperlipidemia active Justin Pulido MD Hypertension active Justin Pulido MD Left bundle branch block active Justin shabazz MD Cardiomyopathy, dilated active Justin Lewis plaque active Libby Machadomigljuliet correia SOFTWARE SECURITY ARCHITECT Anemia, iron deficiency active Libby Machado miglia SOFTWARE SECURITY ARCHITECT Cardiology examination active Justin Pulido MD ENCOUNTERS Date Type Provider Location Encounter Diag nosis - In-person encounter Office Visit Justin Pulido MD [facility] Cardiology examination - In-person encounter Office Visit Justin Pulido MD [facility] Debbie plaqueAnemia, iron deficienc y - In-person encounter Office Visit Justin Pulido MD [facility] Cardiomyopathy, dilated - In-person encounter Office Visit Justin Pulido MD [facility] - In-person encounter Office Visit Justin Pulido MD [facility] Office - In-person encounter Office Visit Justin Pulido MD [facility] Office - In-person encounter Office Visit Justin Pulido MD [facility] Office ScreeningHyperlipidemiaHypertensionLeft bundle branch block [...] MD blood pressure, cuff size regular Robert [facility] blood pressure, diastolic 71 mm[Hg] [...] blood pressure, cuff size large Linn arce Maunie height E&M 66 [in_i] Mary Carmen herman Body Mass Index (Ratio) 28.24 kg/m2 Maynor Pulido MD blood pressure, cuff size large Ke irenei Zee blood pressure, diastolic 71 mm[Hg] Ke rri Rituneamalia blood pressure, systolic 145 mm[Hg] aTnvi Koch oxygen saturation, oximetry 97 % Kaity Koch respiratory rate E&M 14 /min Kaity G felicitaeneamalia pulse rate 65 /min Kaity Erwin [facility] weight E&M 175 [lb_av] Kaity Ritunerylande [facility] height E&M 66 [in_i] Kaity Chaneyneani [facility] Body Mass Index (Ratio) 27.76 kg/m2 Maynor Pulido MD oxygen saturation, oximetry 98 % Chastity Cara pulse rate 69 /min Chastity Cara blood pressure, diastolic 74 mm[Hg] Ch astity Cara blood pressure, systolic 122 mm[Hg] Marzena stity Cara weight E&M 172 [lb_av] [facility] respiratory rate E&M 16 /min Marzenastit y Cara height E&M 66 [in_i] [facility] Body Mass Index (Ratio) 28.08 kg/m2 [...] drug use no Libby Ventimig ana cristina [facility] alcohol use, average drinks per day social Libby Ventimiglia [facility] alcohol use yes Libby Ventimig ana cristina [facility] smoking status Never smoker Libby townsend [facility] social history E&M Marital Statu s: Sandra [...] Payer name Policy type / Coverage type [place] red green party ID AETNA MEDICARE GARETH PPO Medicare [id number] 300 ADVANCE DIRECTIVES Name Date POWER OF CERTIFIED COMPOSITES TECHNICIAN LIVING WILL ON FILE TREATMENT PLAN Date Name Performer [id number],S,B P 125/71 well controlled W ill continue present medication regimen H is updated medication list for this problem includes: Diltiazem Hcl 240 Mg Capsule,extended Release 24 Hr (Diltiazem hcl) ..... 1 capsule once a day [facility] [id number],B,has improved with oral iron [facility] [id number],B,L DL 80 remains on statin therapy H is updated medication list for this problem includes: Rosuvastatin 10 Mg Tablet (Rosuvastatin) ..... Take 1 tablet by mouth every day [facility] [id number],N,N oted on recent eye exam p atient has no chest pain, SOB or neurolgic deficit H e had stress last year negative for ischemia E cho 01/2023 showed normal EF C arotid last year less than 50% stenosis A s asymptomatic at this time will continue medical [facility] [id number],B,I mproved E F of 60% with no valvular abnormalities on last echo 01/2022 Bim Walter [facility] [id number],S, Justin anderson MD [id number],S, Justin anderson MD [id number],S, Justin anderson MD [id number],S, Justin anderson MD [id number],S, Justin anderson MD [id number],C,C ould not tolerate statin. Will see what his lipid panel is before considering Repatha. Justin Pulido MD [id number],C,H as reacted to multiple medications. W ill start RPM (remote patient monitoring), no new meds at this time. He may not need any. Justin Pulido MD [id number],S, Justin anderson MD [id number],S, Justin anderson MD [id number],S, Justin anderson MD [id number],S, Justin anderson MD [id number],N, Justin anderson MD Cardiology Justin Pulido MD [...] 1 capsule once a day Libby Watson [facility] Cardiology:has improved with ora l iron Libbysamia Watson [facility] Cardiology:LDL 80 re kathleen on statin therapy H is updated medication list for this problem includes: Rosuvastatin 10 Mg Tablet (Rosuvastatin) ..... Take 1 tablet by mouth every day Libby Watson [facility] Cardiology:Noted on recent eye exam p atient has no chest pain, SOB or neurolgic deficit H e had stress last year negative for ischemia E cho 01/2023 showed normal EF C arotid last year less than 50% stenosis A s asymptomatic at this time will continue medical management Libby Watson SOFTWARE SECURITY ARCHITECT Cardiology:Improved E F of 60% with no valvular abnormalities on last echo 01/2022 Libby Watson SOFTWARE SECURITY ARCHITECT Cardiology Justin Pulido MD Cardiology Justin Pulido [...]
--- OUTSIDE RECORDS SUMMARY | 2025-03-25 07:48 | XMS_ITS | Encounter Summary ---
Author Organization [facility] Address [address] [place] [address] Phone Care Team Providers Care Butt Presser Name Role Phone Camacho Jacobsen MD Primary Care Provider [phone] Camacho Jacobsen MD Primary Care Provider [phone] Encounter Details Date Type Department Care Team (Latest Contact Info) Description 02/19/2022 Transcribe Orders [facility] Central Scheduling [address] [place] [address] Conchita Newman, WEB APPLICATION TESTER, GUEST RELATIONS COORDINATOR [address] [facility] [address] [address] Pulsatile tinnitus (Primary Dx); Left [...] unspecified documented in this encounter Care Teams Butt Presser Relationship Specialty Start Date End Date Camacho Jacobsen MD PCP - General Internal Medicine 02/08/22 02/15/23 Camacho Jacobsen MD [address] [place] [address] PCP - General Internal Medicine 05/20/23 documented as of this encounter
--- OUTSIDE RECORDS SUMMARY | 2025-03-25 07:48 | XMS_ITS | Clinical Summary ---
Author Organization [facility] Address [address] [place] [address] Phone Care Team Providers Care Vault Custodian Name Role Phone Camacho Jacobsen MD Primary Care Provider [phone] Social History Tobacco Use Types Packs/Day Years [...] (Adult) (1 - 1-dose 75+ series) 2022 SARS-COV-2 Immunization (2 - season) 2024 02/05/2022 Influenza Immunization (Season Ended) 2025 06/23/2021, 06/24/2020, 06/16/2019, Additional history exists TdaP Immunization Completed 02/11/2006 Pneumococcal Immunization (50+ years) Completed 12/04/2014, 11/27/2012 DTaP/Tdap/Td Immunization Discontinued 01/26/2016, 02/2006 Hepatitis B Immunization Aged Out No longer eligible based on patient's age to complete this topic Human Papillomavirus (HPV) Immunization Aged Out No longer eligible based on patient's age to complete this topic Meningococcal Immunization (ACWY) Aged Out No longer eligible based on patient's age to complete this topic Rotavirus Immunization Aged Out No lo nger eligible based on patient's age to complete this topic Insurance [facility] Care Teams Vault Custodian Relationship Specialty Start Date End Date Camacho Jacobsen MD [address] [place] [address] PCP - General Internal Medicine 05/20/23
[2025-03-25 20:13] LABS: Basophils Absolute Auto 0.1 K/mm3 (0.0-0.1); Basophils Percent Auto 0.4 % (0.2-1.2); Eosinophils Absolute Auto 0.2 K/mm3 (0-0.3); Eosinophils Percent Auto 1.4 % (0-4.4); Hematocrit 45.8 % (42.0-52.0); Hemoglobin 13.9 g/dL (14.0-18.0); Immature Granulocyte Absolute 0.06 K/mm3 (0.00-0.031); Immature Granulocyte Percent A 0.5 % (0-0.5); Lymphocytes Absolute Auto 2.14 K/mm3 (0.9-3.2); Lymphocytes Percent Auto 18.1 % (18.3-44.2); Mean Corpuscular HGB Conc 30.3 g/dl (32-36); Mean Corpuscular Volume 98.9 fl (80-100); Mean Platelet Volume 9.6 fl (7.4-10.4); Monocytes Absolute Auto 0.9 K/mm3 (0.1-0.6); Monocytes Percent Auto 7.5 % (2.6-8.5); Neutrophils Absolute Auto 8.5 K/mm3 (1.3-6.7); Neutrophils Percent Auto 72.1 % (45.5-73.1); Platelet Count Result 371 k/mm3 (150-375); Red Blood Count 4.63 M/mm3 (4.6-6.20); Red Cell Distribution Width 13.6 % (11.5-14.5); White Blood Count 11.8 K/mm3 (4.5-10.0)
[2025-03-25 20:31] LABS: Alanine Aminotransferase 20 U/L (6-50); Albumin Level 4.1 g/dL (3.5-5.1); Alkaline Phosphatase 97 U/L (38-126); Anion Gap 8 mmol/L (4-12); Aspartate Amino Transferase 83 U/L (17-59); Bilirubin,Total 0.3 mg/dL (0.2-1.3); Blood Urea Nitrogen 23 mg/dL (9-20); Calcium 9.4 mg/dL (8.4-10.2); Carbon Dioxide 30 mmol/L (22-30); Chloride 102 mmol/L (98-107); Estimated Glomerular Filt Rate 57; Glucose 81 mg/dL (65-110); Sodium 140 mmol/L (137-145); Total Protein 7.8 g/dL (6.3-8.2)
== END 2025-03-25 07:46 | disposition home or self-care (01) ==
LOC: ANHBWCLAB 07:46
PROVIDERS: PCP Family Medicine; Visit Provider Family Medicine
DX: R74.8 Abnormal levels of other serum enzymes (principal); K21.9 Gastro-esophageal reflux disease without esophagitis; R13.10 Dysphagia, unspecified; D64.9 Anemia, unspecified; I10 Essential (primary) hypertension
CPT/HCPCS: 36415; 80053; 82607; 85025

== ENCOUNTER 2025-06-28 09:15 | Outpatient (CLI) | payer MEDICARE, SELFPAY ==
--- NOTE | ~2025-06-28 | XR_ITS ---
EXAMINATION: XR chest 2V, 06/28/2025 9:19 CDT HISTORY: R05.9 - Cough, unspecified COMPARISON: No comparisons available. Technique: 2 views obtained. Findings: The lungs are clear, no effusion. No pneumothorax. Heart is normal size. Mediastinal and hilar contours are within normal limits. Bony thorax no acute abnormality. Impression: No acute cardiopulmonary abnormality. Reviewed, dictated and finalized at location A. Impression: No acute cardiopulmonary abnormality.
== END 2025-06-28 09:16 | disposition home or self-care (01) ==
LOC: MICIMG 09:16
PROVIDERS: PCP Family Medicine; Visit Provider Nurse Practitioner Family
DX: R05.9 Cough, unspecified (principal)
CPT/HCPCS: 71046

== ENCOUNTER 2025-07-09 07:43 | Outpatient (CLI) | payer MEDICARE, SELFPAY ==
[2025-07-09 19:52] LABS: Alanine Aminotransferase 22 U/L (6-50); Albumin Level 4.0 g/dL (3.5-5.1); Alkaline Phosphatase 93 U/L (38-126); Aspartate Amino Transferase 88 U/L (17-59); Bilirubin,Total 0.4 mg/dL (0.2-1.3); Total Protein 7.4 g/dL (6.3-8.2)
[2025-07-09 20:46] LABS: Hepatitis B Surface Antigen Negative (Negative)
[2025-07-09 20:52] LABS: HAV RESULT Negative (Negative); Hepatitis B Core IgM Result Negative (Negative)
== END 2025-07-09 07:44 | disposition home or self-care (01) ==
LOC: ANHBWCLAB 07:44
PROVIDERS: PCP Family Medicine; Visit Provider Family Medicine
DX: R74.01 Elevation of levels of liver transaminase levels (principal)
CPT/HCPCS: 36415; 80074; 80076

== ENCOUNTER 2025-07-24 07:54 | Outpatient (CLI) | payer MEDICARE, SELFPAY ==
--- NOTE | ~2025-07-24 | US_ITS ---
ULTRASOUND ABDOMEN LIMITED (RIGHT UPPER QUADRANT) Clinical History: R74.01 - Elevation of levels of liver transaminase levels Comparison: None Technique: Right upper quadrant sonography Findings: Liver: Normal size. Echogenic. No intrahepatic biliary ductal dilatation. Normal hepatopedal flow main portal vein. Common Duct: Normal caliber. 5 mm. Gallbladder: Removed. Pancreas: Obscured by bowel gas. Right kidney: Unremarkable. Retrohepatic IVC: Unremarkable. IMPRESSION: 1. No acute findings. 2. Hepatic steatosis and/or hepatocellular disease. Reviewed, dictated and finalized at location R.
== END 2025-07-24 07:55 | disposition home or self-care (01) ==
LOC: MICIMG 07:55
PROVIDERS: PCP Family Medicine; Visit Provider Family Medicine
DX: R74.01 Elevation of levels of liver transaminase levels (principal); R74.8 Abnormal levels of other serum enzymes; K76.0 Fatty (change of) liver, not elsewhere classified
CPT/HCPCS: 76705